=== PATIENT | male | born 1970 | race Caucasian/White ===

== ENCOUNTER 2019-08-03 12:39 | Outpatient (RCR) | payer BC, MEDICARE, SELFPAY | END 2019-11-01 23:59 | disposition home or self-care (01) | LOC: ANHDMC 12:39 | PROVIDERS: PCP Family Medicine; Visit Provider Family Medicine | DX: E10.10 Type 1 diabetes mellitus with ketoacidosis without coma (principal); Z71.89 Other specified counseling | CPT/HCPCS: G0108 ==

== ENCOUNTER 2020-04-18 21:24 | Inpatient (IN) | payer BC, MEDICARE, SELFPAY ==
--- NOTE | ~2020-04-18 | CT_ITS ---
EXAMINATION: CT abdomen pelvis w con EXAM DATE: 04/18/2020 23:14 INDICATION: Diabetic ketoacidosis. Elevated blood sugar. TECHNIQUE: Spiral CT of the abdomen and pelvis was performed following intravenous injection of 100 m L Omnipaque 350. Axial, coronal and sagittal images were reviewed. The dose-length product (DLP) fo r this examination was 187.08 mGy-cm. The exposure was tailored according to patient size (auto mA e xposure control), and iterative reconstruction (ASIR) was used as additional dose reduction technique . Comparison is made to prior examination from 07/11/2019. FINDINGS: Patient is cachectic. Paucity of intra-abdominal fat, along with edema within the fat decre ases sensitivity for acute intra-abdominal processes. There is large amount of gas and fluid in the stomach. There is moderate to large amount of colonic s tool. There are several loops of severely distended air-filled small bowel as well, up to 4 cm. Most of the small bowel is collapsed. Appendix is not identified. No free intraperitoneal gas. The liver, spleen, adrenal glands and pancreas are unremarkable. Gallbladder is unremarkable. No bi liary obstruction. Portal and splenic veins are patent. Kidneys enhance symmetrically. There is no hydronephrosis. The prostate is unremarkable. The bladder is severely distended but otherwise unr emarkable. There is no retroperitoneal or pelvic lymphadenopathy. There is mild scattered arterios clerotic disease. Narrow cardiac silhouette from hyperinflated lungs. No basilar airspace disease. The lung bases are unremarkable. L4-5 fusion hardware. IMPRESSION: 1. Significantly distended stomach and jejunum. Collapsed ileum but large amount of colonic stool. N o pneumatosis. Could be ileus given history provided. Can't exclude small bowel obstruction. Recommen d KUB as baseline for follow-up. 2. Cachexia. Generalized subcutaneous, intra-abdominal fat stranding. 3. Severely distended bladder. Reviewed, dictated and finalized at location [facility]. IMPRESSION: 1. Significantly distended stomach and jejunum. Collapsed ileum but large amou nt of colonic stool. No pneumatosis. Could be ileus given history provided. Can 't exclude small bowel obstruction. Recommend KUB as baseline for follow-up. 2. Cachexia. Generalized subcutaneous, intra-abdominal fat stranding. 3. Severely distended bladder.
--- NOTE | ~2020-04-18 | XR_ITS ---
XR abdomen obstructive series DATE: 04/19/2020 07:15 INDICATION: Partial small bowel obstruction TECHNIQUE: Portable supine and upright AP views of the abdomen COMPARISON: 04/18/2020 CT abdomen pelvis FINDINGS: The mid and lower lung zones are clear. Normal heart size. No pleural effusion or pneumoper itoneum is evident. The urinary bladder is distended with contrast material from 04/18/2020 CT abdomen pelvis examination. Some gas distended mildly dilated small bowel segments overlying the mid to lower abdomen; diffusion diagnosis includes partial small bowel obstruction versus adynamic ileus. Status post posterior spinal fusion at L5-S1. IMPRESSION: Mild small bowel dilatation; diffusion diagnosis includes partial small bowel obstruction versus adynamic ileus No evidence of intraperitoneal free air Reviewed, dictated and finalized at [facility]. Reviewed, dictated and finalized at location A. IMPRESSION: Mild small bowel dilatation; diffusion diagnosis includes partial s mall bowel obstruction versus adynamic ileus No evidence of intraperitoneal free air
[2020-04-18 21:36] VITALS: BP 154/55; PULSE 106; RESP 32; TEMP 36.5; O2SAT 99
[2020-04-18 21:40] VITALS: RESP 32
--- NOTE | 2020-04-18 21:40 | ED.RECABL ---
HPI - Recheck/Abnormal Lab/Rx General Chief Complaint: Recheck/Abnormal Lab/Rx Stated Complaint: high bs Time Seen by Provider: 04/18/20 21:30 History of Present Illness HPI narrative: Patient arrives via EMS after a well check at the hospital found him to be sick. He has a type I diabetic and has not been taking his insulin. His sugar read high. He has no complaint of pain. He is very thin and cachectic. He seems very uncomfortable, and is not answering all my questions. The nurse asked him if he wants to and he says no, she then says then why do not you take your insulin? MD complaint: abnormal lab Initial visit (ago): hour(s) Initial visit for: other (DKA in a type I diabetic) Associated symptoms: none Related Data Home Medications Medication Instructions Recorded Confirmed methadone 5 mg tablet 10 mg PO Q8H tablet 10/07/19 03/21/20 mecobalamin (vitamin B12) 1,000 1,000 mcg SUBLINGUAL DAILY 03/21/20 03/21/20 mcg disintegrating tablet,sublingual carbamazepine 200 mg tablet 200 mg PO Q12H 03/30/20 cranberry extract-vitamin C 250 cap PO 03/30/20 mg-60 mg capsule [id number] 800 mcg-alpha cap PO 03/30/20 alipoic acid 150 mg-co Q10 50 mg capsule multivitamin 1 tablet PO DAILY 03/30/20 sertraline 50 mg tablet 50 mg PO DAILY 03/30/20 insulin glargine 100 unit/mL (3 10 unit SUB-Q DAILY 04/04/20 mL) subcutaneous pen duloxetine [Cymbalta] 60 mg PO DAILY 04/18/20 Allergies Allergy/AdvReac Type Severity Reaction Status Date / Time No Known Allergies Allergy Unknown Uncoded 04/18/20 21:42 Review of Systems Review of Systems: Narrative: CONSTITUTIONAL: Denies fever, chills, or sweats. EYES: Denies visual changes, redness, or discharge. ENT: Denies rhinorrhea, congestion, sore throat, or otalgia. CARDIOVASCULAR: Denies chest pain, palpitations, or edema. RESPIRATORY: Denies cough or dyspnea. GASTROINTESTINAL: Denies abdominal pain, nausea, vomiting, or diarrhea. GENITOURINARY: Denies dysuria or hematuria. SKIN: Denies rash or itching. MUSCULOSKELETAL: Denies back pain, joint pain, or myalgia. NEUROLOGIC: Denies headache, numbness, or weakness. . All systems reviewed & are unremarkable except as noted in HPI and below PMFSH Past Medical History Medical History Bipolar disorder Gastro-esophageal reflux disease without esophagitis HTN (hypertension) Type 1 diabetes mellitus Umbilical hernia Surgical History Surgical History History of bilateral carpal tunnel release History of decompression of ulnar nerve History of lumbar spinal fusion History of rotator cuff surgery Hx of fusion of cervical spine Family History Family History Grandparent Diabetes mellitus, Onset Age: 80 Mother Patient's mother is in good health Family history of arthritis Family history of Alzheimer's disease Father Cerebrovascular accident, Onset Age: 72 Hypertension Sibling Hypertension Gallbladder cancer Social History Social History Smoking status: Light tobacco smoker Alcohol intake: never Substance use: never 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 HEAD: Normocephalic, atraumatic. EYES: PERRLA and EOMI. ENT: Nares clear, no rhinorrhea or epistaxis. Mucous membranes dry. NECK: Supple. CHEST: Clear to auscultation. No respiratory distress. HEART: Regular rate and rhythm. No murmur heard. Normal peripheral pulses. ABDOMEN: Soft, nontender, nondistended, normal active bowel sounds. EXTREMITIES: Normal range of motion. No edema. SKIN: Warm, dry, no rash. NEURO: No focal d
[2020-04-18] MEDS: SODIUM CHLORIDE 0.9% IV 1,000 ML 999 ML IV CONT ×2 (21:44→22:49)
[2020-04-18] MEDS: INSULIN HUMAN REGULAR (*BKC) 100 UNITS/ML 10 UNITS IV PUSH (21:51)
[2020-04-18 21:59] LABS: Basophils Absolute Auto 0.1 K/mm3 (0.0-0.1); Basophils Percent Auto 0.3 % (0.2-1.2); Hematocrit 36.6 % (42.0-52.0); Hemoglobin 11.9 g/dL (14.0-18.0); Immature Granulocyte Absolute 0.25 K/mm3 (0.00-0.031); Immature Granulocyte Percent A 1.2 % (0-0.5); Lymphocytes Absolute Auto 1.64 K/mm3 (0.9-3.2); Lymphocytes Percent Auto 8.2 % (18.3-44.2); Mean Corpuscular HGB Conc 32.5 g/dl (32-36); Mean Corpuscular Hemoglobin 33.2 pg (26-34); Mean Corpuscular Volume 102.2 fl (80-100); Monocytes Absolute Auto 0.9 K/mm3 (0.1-0.6); Monocytes Percent Auto 4.3 % (2.6-8.5); Neutrophils Absolute Auto 17.3 K/mm3 (1.3-6.7); Platelet Count Result 400 k/mm3 (150-375); Red Blood Count 3.58 M/mm3 (4.6-6.20); White Blood Count 20.1 K/mm3 (4.5-10.0)
[2020-04-18 22:05] LABS: Glucose Point of Care > 500 (65-105)
[2020-04-18 22:16] LABS: Alanine Aminotransferase 27 U/L (4-50); Albumin Level 3.9 g/dL (3.5-5.1); Alkaline Phosphatase 86 U/L (38-126); Aspartate Amino Transferase 26 U/L (17-59); Bilirubin,Total 0.5 mg/dL (0.2-1.3); Blood Urea Nitrogen 42 mg/dL (9-20); Calcium 8.6 mg/dL (8.4-10.2); Carbon Dioxide < 5 mmol/L (22-30); Chloride 88 mmol/L (98-107); Estimated CRCL calculation 41 ml/min; Estimated Glomerular Filt Rate 54; Magnesium 2.8 mg/dL (1.6-2.3); Phosphorus 7.1 mg/dL (2.5-4.5); Potassium 6.2 mmol/L (3.4-5.0); Sodium 130 mmol/L (137-145)
[2020-04-18 22:19] LABS: Glucose 803 mg/dL (75-110)
[2020-04-18] MEDS: INSULIN HUMAN REGULAR (*BKC) 100 UNITS/ML IV PUSH (22:46)
[2020-04-18 22:57] LABS: Basophils Absolute Auto 0.1 K/mm3 (0.0-0.1); Basophils Percent Auto 0.3 % (0.2-1.2); Hematocrit 38.2 % (42.0-52.0); Hemoglobin 12.4 g/dL (14.0-18.0); Immature Granulocyte Absolute 0.18 K/mm3 (0.00-0.031); Immature Granulocyte Percent A 0.9 % (0-0.5); Lymphocytes Absolute Auto 1.92 K/mm3 (0.9-3.2); Lymphocytes Percent Auto 9.6 % (18.3-44.2); Mean Corpuscular HGB Conc 32.5 g/dl (32-36); Mean Corpuscular Hemoglobin 33.2 pg (26-34); Mean Corpuscular Volume 102.1 fl (80-100); Mean Platelet Volume 8.7 fl (7.4-10.4); Monocytes Absolute Auto 0.2 K/mm3 (0.1-0.6); Monocytes Percent Auto 1.1 % (2.6-8.5); Neutrophils Absolute Auto 17.6 K/mm3 (1.3-6.7); Neutrophils Percent Auto 88.1 % (45.5-73.1); Nucleated Red Blood Cells Perc 0.1 % (0.0-0.2); Platelet Count Result 380 k/mm3 (150-375); Red Blood Count 3.74 M/mm3 (4.6-6.20); Red Cell Distribution Width 12.9 % (11.5-14.5)
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
[2020-04-18 23:18] VITALS: BP 155/85; PULSE 111; RESP 24; O2SAT 100
[2020-04-18 23:20] LABS: Alanine Aminotransferase 27 U/L (4-50); Albumin Level 3.6 g/dL (3.5-5.1); Alkaline Phosphatase 75 U/L (38-126); Anion Gap 35.6 mmol/L (7-16); Aspartate Amino Transferase 26 U/L (17-59); Bilirubin,Total 0.4 mg/dL (0.2-1.3); Blood Urea Nitrogen 40 mg/dL (9-20); Carbon Dioxide 6 mmol/L (22-30); Chloride 96 mmol/L (98-107); Estimated CRCL calculation 47 ml/min; Estimated Glomerular Filt Rate > 60; Glucose 657 mg/dL (75-110); Potassium 4.6 mmol/L (3.4-5.0); Sodium 133 mmol/L (137-145)
[2020-04-18 23:36] LABS: Lactic Acid Reflex 5.3 mmol/L (0.7-2.1)
[2020-04-18 23:38] LABS: Alveolar/Arterial O2 Gradient 15.3 mmHg; Base Excess ABG -14.4 mEq/l (+/-2.0); Fractional Inspired Oxygen 21 %; HCO3 ABG 8.9 mEq/l (22.0-26.0); Oxygen Content ABG 16.3 %vol (16.0-22.0); Oxygen Saturation ABG 98.1 % (95.0-100.0); Oxyhemoglobin 96.6 % THb (90.0-100.0); PO2 ABG 114.3 mmHg (80.0-100.0); PO2 FiO2 Ratio Arterial Blood 5.44 %; Total Hemoglobin 11.9 g/dL (12.0-18.0); pH ABG 7.343 (7.350-7.450)
[2020-04-18 23:39] LABS: Device ROOM AIR; Modified Allen's Test Pass; PCO2 ABG 16.8 mmHg (35.0-45.0); Site Drawn RIGHT RADIAL
[2020-04-19] VITALS (16 sets, daily range): BP systolic 138–186; BP diastolic 56–82; PULSE 69–109; RESP 18–29; TEMP 37.7; O2SAT 97–100; BMI 17.2; BMI 17.1
[2020-04-19] MEDS: INSULIN HUMAN REGULAR (*BKC) 100 UNITS in SODIUM CHLORIDE 0.9% IV 99 ML 9.2 UNITS IV CONT (00:03)
[2020-04-19 00:17] LABS: Glucose Point of Care > 500 (65-105)
[2020-04-19 00:28] LABS: Add Urine Microscopic? YES; Appearance Urine Clear (Clear); Bilirubin Urine Negative (Negative); Blood Urine Negative (Negative); Color Urine Straw (Yellow); Glucose Urine UA 3+ mg/dL (Negative); Ketones Urine 2+ mg/dL (Negative); Leukocyte Esterase Ur Negative LEU/UL (Negative); Mucus Urine Rare /lpf; Nitrate Urine Negative (Negative); Protein Urine Negative (Negative); RBC Urine 0-2 /hpf (0-2); Specific Grav Ur 1.025 (1.001-1.035); Urobilinogen Urine Negative mg/dL (<2.0); WBC Urine 0-3 /hpf
[2020-04-19 00:43] LABS: Amphetamine Screen Urine Negative (Negative); Barbiturate Screen Urine Negative (Negative); Benzodiazepines Screen Urine Negative (Negative); Cannabinoid Screen Urine Negative (Negative); Cocaine Screen Urine Negative (Negative); Methadone Screen Urine Negative (Negative); Opiate Screen Urine Negative (Negative); Phencyclidine Screen Urine Negative (Negative)
[2020-04-19 01:39] LABS: Glucose Point of Care 464 (65-105)
[2020-04-19 02:21] LABS: Reflex Lactic Acid Yes or No Add Lactic
[2020-04-19] MEDS: SODIUM CHLORIDE 0.9% IV 1,000 ML 150 ML IV CONT (02:22)
[2020-04-19 02:44] LABS: Glucose Point of Care 352 (65-105)
[2020-04-19 03:14] LABS: Alveolar/Arterial O2 Gradient 46.1 mmHg; Base Excess ABG -5.5 mEq/l (+/-2.0); Fractional Inspired Oxygen 21 %; HCO3 ABG 17.9 mEq/l (22.0-26.0); Oxygen Content ABG 15.7 %vol (16.0-22.0); Oxygen Saturation ABG 94.4 % (95.0-100.0); Oxyhemoglobin 92.2 % THb (90.0-100.0); PCO2 ABG 28.7 mmHg (35.0-45.0); PO2 ABG 69.3 mmHg (80.0-100.0); Total Hemoglobin 12.1 g/dL (12.0-18.0); pH ABG 7.412 (7.350-7.450)
[2020-04-19 03:15] LABS: Device ROOM AIR; Modified Allen's Test Pass; Site Drawn RIGHT RADIAL
[2020-04-19 03:25] LABS: Glucose Point of Care 388 (65-105)
[2020-04-19 04:31] LABS: Glucose Point of Care 273 (65-105)
[2020-04-19 05:37] LABS: Glucose Point of Care 207 (65-105)
[2020-04-19] MEDS: KCL 20 MEQ/D5/0.45% SOD CHL 1,000 ML 150 ML IV CONT (05:52)
[2020-04-19 06:36] LABS: Glucose Point of Care 145 (65-105)
[2020-04-19 07:42] LABS: Glucose Point of Care 119 (65-105)
[2020-04-19 07:51] LABS: Anion Gap 7.8 mmol/L (7-16); Blood Urea Nitrogen 30 mg/dL (9-20); Calcium 8.3 mg/dL (8.4-10.2); Carbon Dioxide 27 mmol/L (22-30); Chloride 107 mmol/L (98-107); Estimated CRCL calculation 78 ml/min; Estimated Glomerular Filt Rate > 60; Glucose 119 mg/dL (75-110); Potassium 3.8 mmol/L (3.4-5.0); Sodium 138 mmol/L (137-145)
[2020-04-19 07:52] LABS: Lactic Acid Reflex 0.8 mmol/L (0.7-2.1)
[2020-04-19 08:38] LABS: Glucose Point of Care 110 (65-105)
[2020-04-19 09:28] LABS: Basophils Percent Auto 0.2 % (0.2-1.2); Hematocrit 33.6 % (42.0-52.0); Hemoglobin 11.7 g/dL (14.0-18.0); Immature Granulocyte Absolute 0.11 K/mm3 (0.00-0.031); Immature Granulocyte Percent A 0.5 % (0-0.5); Lymphocytes Absolute Auto 2.47 K/mm3 (0.9-3.2); Lymphocytes Percent Auto 10.5 % (18.3-44.2); Mean Corpuscular HGB Conc 34.8 g/dl (32-36); Mean Corpuscular Volume 94.6 fl (80-100); Mean Platelet Volume 8.9 fl (7.4-10.4); Monocytes Absolute Auto 1.7 K/mm3 (0.1-0.6); Monocytes Percent Auto 7.2 % (2.6-8.5); Neutrophils Absolute Auto 19.3 K/mm3 (1.3-6.7); Neutrophils Percent Auto 81.6 % (45.5-73.1); Platelet Count Result 406 k/mm3 (150-375); Red Blood Count 3.55 M/mm3 (4.6-6.20); Red Cell Distribution Width 12.6 % (11.5-14.5); White Blood Count 23.6 K/mm3 (4.5-10.0)
[2020-04-19 09:39] LABS: Glucose Point of Care 121 (65-105)
[2020-04-19 10:38] LABS: Glucose Point of Care 75 (65-105)
--- NOTE | 2020-04-19 10:44 | PC.NURSE ---
Insulin drip paused at this time.
[2020-04-19 11:58] LABS: Glucose Point of Care 98 (65-105)
--- NOTE | 2020-04-19 12:52 | PC.NURSE ---
Spoke with Nichelle, Saw Straightener and Dr Jerez. Instructed to give 10 units Lantus and continue the insulin drip for 1 hr after 10 unit dose given.
[2020-04-19] MEDS: INSULIN GLARGINE (*BKC) 100 UNITS/ML 10 UNITS SUB-Q (12:55)
[2020-04-19 12:59] LABS: Glucose Point of Care 118 (65-105)
[2020-04-19 13:16] LABS: Anion Gap 12.2 mmol/L (7-16); Blood Urea Nitrogen 30 mg/dL (9-20); Calcium 7.7 mg/dL (8.4-10.2); Carbon Dioxide 24 mmol/L (22-30); Chloride 104 mmol/L (98-107); Estimated CRCL calculation 90 ml/min; Estimated Glomerular Filt Rate > 60; Glucose 131 mg/dL (75-110); Potassium 4.2 mmol/L (3.4-5.0); Sodium 136 mmol/L (137-145)
[2020-04-19 13:54] LABS: Glucose Point of Care 113 (65-105)
--- NOTE | 2020-04-19 13:58 | PC.NURSE ---
Spoke with Kamlesh and instructed to stop IV insulin. Informed that pt will be downgraded from ICU.
--- NOTE | 2020-04-19 16:03 | PM.CNGS ---
Assessment and Plan Assessment and plan (1) Ileus: Code(s): K56.7 - Ileus, unspecified Status: Acute Assessment and Plan: Imaging suggests ileus versus partial small bowel obstruction. Patient with no history of abdominal surgeries. Bowels have been moving normally. Clinically his symptoms have resolved with treatment of his DKA. Abdominal exam benign. No indication for surgical intervention at this time. Okay to advance his diet as tolerated from a surgical standpoint. We will continue to monitor him with serial abdominal exams and imaging if needed. Thank you for allowing us to see the patient in consultation and we will continue to follow along with you. (2) Leukocytosis: Qualifiers: Leukocytosis type: unspecified Qualified Code(s): D72.829 - Elevated white blood cell count, unspecified Code(s): D72.829 - Elevated white blood cell count, unspecified Status: Acute Assessment and Plan: Currently on broad-spectrum IV antibiotics. No obvious source of infection. Management per primary service. (3) Elevated lactic acid level: Code(s): R79.89 - Other specified abnormal findings of blood chemistry Status: Acute Assessment and Plan: Repeat lactic acid normal. Likely related to his DKA. (4) DKA (diabetic ketoacidoses): Qualifiers: Diabetes mellitus complication detail: without coma Diabetes mellitus type: type 1 Qualified Code(s): E10.10 - Type 1 diabetes mellitus with ketoacidosis without coma Code(s): E11.10 - Type 2 diabetes mellitus with ketoacidosis without coma Status: Acute Assessment and Plan: Currently off Insulin drip and anion gap closed. Management per primary service and Retail Pos Specialist. When it is okay to start feeding the patient with other services, it is okay from a surgical standpoint to advance his diet as tolerated. (5) Type 1 diabetes mellitus: Qualifiers: Diabetes mellitus complication status: with hyperglycemia Qualified Code(s): E10.65 - Type 1 diabetes mellitus with hyperglycemia Code(s): E10.9 - Type 1 diabetes mellitus without complications Status: Acute (6) Chronic constipation: Code(s): K59.09 - Other constipation Status: Acute (7) Other chronic pain: Code(s): G89.29 - Other chronic pain Status: Acute Assessment and Plan: Takes methadone for chronic pain. Could be contributing to current issue. Would likely benefit from laxatives. (8) Substance abuse: Code(s): F19.10 - Other psychoactive substance abuse, uncomplicated Status: Acute Assessment and Plan: Could contribute to constipation and other issues. Encouraged patient to stop using. Has recently looked at a treatment facility for substance abuse. (9) Essential (primary) hypertension: Code(s): I10 - Essential (primary) hypertension Status: Acute (10) Bipolar disorder: Qualifiers: Active/Remission status: remission status unspecified Qualified Code(s): F31.9 - Bipolar disorder, unspecified Code(s): F31.9 - Bipolar disorder, unspecified Status: Chronic (11) Ventral hernia without obstruction or gangrene: Code(s): K43.9 - Ventral hernia without obstruction or gangrene Status: Acute Assessment and Plan: Not the cause for admission or causing any current issues. Was seen by Dr. Nichols as an outpatient for this increasingly symptomatic ventral hernia. No obstruction, soft and reducible. Continue plan to schedule electively as an outpatient. Additional Plan Discussed the patient's case and plan of care with Dr. Nichols. History of Present Illness Consult details Consult date: 04/19/20 Reason for consult: other (Possible small bowel obstruction versus ileus) Requesting physician: Jim Moncada MD Narrative: This is a 49-year-old male with type 1 diabetes mellitus, bipolar disorder, hypertension, and GERD who presented to
[2020-04-19 17:09] LABS: Glucose Point of Care 101 (65-105)
[2020-04-19 17:09] LABS: Glucose Point of Care 78 (65-105)
--- NOTE | 2020-04-19 17:23 | PC.NURSE ---
meal tray ordered
--- NOTE | 2020-04-19 18:33 | PM.IMPN ---
Progress Note: A&P Assessment and Plan (1) DKA (diabetic ketoacidoses): Qualifiers: Diabetes mellitus complication detail: without coma Diabetes mellitus type: type 1 Qualified Code(s): E10.10 - Type 1 diabetes mellitus with ketoacidosis without coma Code(s): E11.10 - Type 2 diabetes mellitus with ketoacidosis without coma Status: Acute Assessment and Plan: Secondary to medication nonadherence. pH 7.34 with pCO2 17. AG on 36 with glucose 657. Pateitn started on IVF and insulin per DKA protocol. Glucose became better controlled and gap closed. He was transitioned to subcu insulin. IV fluids stopped. Diet started once it was okay with GenSurg and advanced. Diabetes education. Continue AccuCheks with sliding scale protocol. Hypoglycemic protocol. (2) Severe sepsis: Code(s): A41.9 - Sepsis, unspecified organism; R65.20 - Severe sepsis without septic shock Status: Acute Assessment and Plan: Present on admission w/ tachcyardia, leukocytosis, and elevated lactic acid. No clear source of sepsis but may be GI as the patient appears to have an ileus vs. bowel obstruction. BCx and UCx pending. WBC still elevated at 23K. Continue empiric antibiotics w/ vancomycin and ceftriaxone. (3) Ileus: Code(s): K56.7 - Ileus, unspecified Status: Acute Assessment and Plan: CT abd/pelvis demonstrated ileus vs. bowel obstruction. He was NPO overnight. KUB today showing mild SB dilation. GenSurg following and patient with improved bowel function. Diet started and advanced. Appreceiate GenSurg input. Suspect ileus from the DKA. (4) Substance abuse: Code(s): F19.10 - Other psychoactive substance abuse, uncomplicated Status: Acute Assessment and Plan: Patient with chronic opioid addiction. Methadone was listed as home med but unclear if still taking. Will have narcotic available pain. Resume methadone he still takes this. Monitor closely for evidence of withdrawal. Ativan available as needed (5) Acute renal insufficiency: Code(s): N28.9 - Disorder of kidney and ureter, unspecified Status: Acute Assessment and Plan: Cr 1.4 on admssion. Likely prerenal from hypoperfusion. Cr back to normal. [place] to stop IV fluids. (6) Hyperkalemia: Code(s): E87.5 - Hyperkalemia Status: Acute Assessment and Plan: Potassium 6.2 on admission. Secondary to acute renal failure and metabolic acidosis. Resolved with correction of acidosis and renal failure (7) Type 1 diabetes mellitus: Qualifiers: Diabetes mellitus complication status: with hyperglycemia Qualified Code(s): E10.65 - Type 1 diabetes mellitus with hyperglycemia Code(s): E10.9 - Type 1 diabetes mellitus without complications Status: Acute Assessment and Plan: As above. Check A1c. Monitor glucose closely. Continue AccuCheks covering with sliding scale. Hypoglycemia protocol available as needed. Continue current medications. (8) Elevated lactic acid level: Code(s): R79.89 - Other specified abnormal findings of blood chemistry Status: Acute Assessment and Plan: Lactic 5.3. Secondary to DKA vs. severe sepsis. Repeat lactic acid level normal so suspect related to DKA. (9) Leukocytosis: Qualifiers: Leukocytosis type: unspecified Qualified Code(s): D72.829 - Elevated white blood cell count, unspecified Code(s): D72.829 - Elevated white blood cell count, unspecified Status: Acute Assessment and Plan: May be seconadry to DKA vs. severe sepsis. Monitor CBCd. As above. (10) Bipolar disorder: Qualifiers: Active/Remission status: remission status unspecified Qualified Code(s): F31.9 - Bipolar disorder, unspecified Code(s): F31.9 - Bipolar disorder, unspecified Status: Chronic Assessment and Plan: Stable. Resume Cymbalta and Tegreto
[2020-04-19 19:42] LABS: Glucose Point of Care 173 (65-105)
[2020-04-19 23:11] LABS: Glucose Point of Care 190 (65-105)
[2020-04-19] MEDS: carBAMazepine 200 MG TABLET PO (23:29)
[2020-04-20] VITALS: BP 139/73; PULSE 73; RESP 20; TEMP 37.3; O2SAT 100
--- NOTE | 2020-04-20 00:01 | ADMGEN ---
This patient, Idris Del Angel, was admitted to [facility] Surg Room 310-01. Patient/family oriented to hospital policies and general routines including ID bracelet, bed and alarms, visiting hours, pain management, procedures, bathroom and other care routines, personal items, smoking policy, room service/diet, and visiting hours. Valuables list has been completed. Information on how to activate the Rapid Response Team has been discussed. Patient/Family are encouraged to report perceived risks to care and to ask questions if they do not understand what they are told or what they should do.
[2020-04-20 05:49] LABS: Glucose Point of Care 336 (65-105)
[2020-04-20 06:00] VITALS: BP 122/67; PULSE 65; RESP 20; TEMP 37.3; O2SAT 98
[2020-04-20 06:27] LABS: Basophils Percent Auto 0.1 % (0.2-1.2); Eosinophils Percent Auto 0.1 % (0-4.4); Hemoglobin 11.3 g/dL (14.0-18.0); Immature Granulocyte Absolute 0.09 K/mm3 (0.00-0.031); Immature Granulocyte Percent A 0.5 % (0-0.5); Lymphocytes Absolute Auto 1.05 K/mm3 (0.9-3.2); Lymphocytes Percent Auto 6.3 % (18.3-44.2); Mean Corpuscular HGB Conc 34.2 g/dl (32-36); Mean Corpuscular Hemoglobin 32.5 pg (26-34); Mean Corpuscular Volume 94.8 fl (80-100); Mean Platelet Volume 8.5 fl (7.4-10.4); Monocytes Absolute Auto 0.5 K/mm3 (0.1-0.6); Monocytes Percent Auto 3.2 % (2.6-8.5); Neutrophils Percent Auto 89.8 % (45.5-73.1); Platelet Count Result 341 k/mm3 (150-375); Red Blood Count 3.48 M/mm3 (4.6-6.20); Red Cell Distribution Width 12.8 % (11.5-14.5); White Blood Count 16.7 K/mm3 (4.5-10.0)
[2020-04-20 06:42] LABS: Hemoglobin A1C 10.5 % (<5.7)
[2020-04-20 06:44] LABS: Albumin Level 2.8 g/dL (3.5-5.1); Anion Gap 13.2 mmol/L (7-16); Blood Urea Nitrogen 25 mg/dL (9-20); Calcium 7.3 mg/dL (8.4-10.2); Carbon Dioxide 22 mmol/L (22-30); Chloride 98 mmol/L (98-107); Estimated CRCL calculation 85 ml/min; Estimated Glomerular Filt Rate > 60; Glucose 337 mg/dL (75-110); Magnesium 2.1 mg/dL (1.6-2.3); Phosphorus 2.3 mg/dL (2.5-4.5); Potassium 4.2 mmol/L (3.4-5.0); Sodium 129 mmol/L (137-145)
[2020-04-20 08:00] VITALS: PULSE 65; RESP 20; O2SAT 98
[2020-04-20 09:08] LABS: Glucose Point of Care 412 (65-105)
[2020-04-20] MEDS: carBAMazepine 200 MG TABLET PO (10:00)
[2020-04-20] MEDS: INSULIN GLARGINE (*BKC) 100 UNITS/ML 20 UNITS SUB-Q (10:10)
[2020-04-20] MEDS: INSULIN ASPART (*BKC) 100 UNITS/ML SUB-Q ×2 (10:10→12:47)
[2020-04-20] MEDS: DULoxetine HCL 60 MG CAPSULE.DR PO (10:10)
[2020-04-20] MEDS: MULTIVITAMINS THERAPEUTIC TAB (*BKC) 1 TABLET PO (10:49)
[2020-04-20] MEDS: PANTOPRAZOLE 40 MG TABLET PO (10:49)
[2020-04-20] MEDS: CYANOCOBALAMIN 1,000 MCG TABLET 1000 MCG PO (10:50)
[2020-04-20] MEDS: POTASSIUM/PHOSPHORUS/SODIUM 1.5 GM PACKET 1 PACKET PO (11:01)
[2020-04-20 11:24] VITALS: BMI 17.1
--- NOTE | 2020-04-20 11:38 | PM.PNGS ---
Progress Note: A&P Assessment and Plan (1) Ileus: Code(s): K56.7 - Ileus, unspecified Status: Acute Assessment and Plan: resolved c correction of DKA, electrolytes, no acute surgical issues, will sign off, call c ?s, issues (2) DKA (diabetic ketoacidoses): Qualifiers: Diabetes mellitus complication detail: without coma Diabetes mellitus type: type 1 Qualified Code(s): E10.10 - Type 1 diabetes mellitus with ketoacidosis without coma Code(s): E11.10 - Type 2 diabetes mellitus with ketoacidosis without coma Status: Acute Assessment and Plan: resolving, cont current mgmt (3) HTN (hypertension): Code(s): I10 - Essential (primary) hypertension Status: Acute Assessment and Plan: stable, cont mgmt per primary (4) Umbilical hernia: Qualifiers: Obstruction and gangrene presence: without obstruction or gangrene Qualified Code(s): K42.9 - Umbilical hernia without obstruction or gangrene Code(s): K42.9 - Umbilical hernia without obstruction or gangrene Status: Acute Assessment and Plan: may need repair in future as outpt, d/w pt (5) Substance abuse: Code(s): F19.10 - Other psychoactive substance abuse, uncomplicated Status: Acute Assessment and Plan: cont to encourage cessation Subjective Subjective Date/Time Seen: 04/20/20 11:38 Pt reports feeling better, still some mild abd soreness. Pt sanam diet and having normal bowel fxn. Review of Systems Constitutional: Constitutional: Reports body ache(s), Denies chills, Reports fatigue, Reports lethargy and Reports weakness Cardiovascular: Cardiovascular: Denies chest pain and Denies palpitations Respiratory: Respiratory: Denies dyspnea Gastrointestinal: Gastrointestinal: Reports abdominal pain, Reports bloating, Reports constipation, Denies diarrhea, Denies nausea and Denies vomiting Exam Const: General: no acute distress Resp: Auscultation: clear to auscultation bilaterally Cardio: Rate: regular rate Rhythm: regular rhythm GI: Other: S, sl dist, NT Objective Data Vital Signs Vital Signs: Vital Signs - 24 hr 04/19/20 12:00 04/19/20 13:41 04/19/20 15:01 Temperature Pulse Rate 88 69 102 H Respiratory Rate 18 18 18 Blood Pressure 145/68 H 151/79 H 138/62 Pulse Oximetry 99 100 100 04/19/20 16:02 04/19/20 19:01 04/19/20 20:20 Temperature 37.7 C H Pulse Rate 79 79 93 Respiratory Rate 18 18 20 Blood Pressure 146/71 H 155/75 H 152/72 H Pulse Oximetry 98 99 100 04/20/20 00:00 04/20/20 06:00 Temperature 37.3 C 37.3 C Pulse Rate 73 65 Respiratory Rate 20 20 Blood Pressure 139/73 122/67 Pulse Oximetry 100 98 Intake/Output Intake/Output: Intake & Output 04/17/20 04/18/20 04/19/20 04/20/20 23:59 23:59 23:59 23:59 Intake Total 1000 2300 1340 Output Total 900 1200 Balance 1000 1400 140 Meds/Results Medications: Active Medications Generic Name Dose Route Start Last Admin Trade Name Freq PRN Reason Stop Dose Admin Acetaminophen 650 mg 04/18/20 22:48 Tylenol Tablet PO Q4H PRN Mild Pain (1-3) or Fever Hydrocodone Bitart/Acetaminophen 1 tab 04/19/20 19:08 04/20/20 10:38 [place] 5-325 Mg PO 1 tab Q6H PRN Administration Pain Rated 4-6 Carbamazepine 200 mg 04/19/20 21:00 04/20/20 10:00 Tegretol PO 200 mg Q12HR RENO Administration Cyanocobalamin 1,000 mcg 04/20/20 09:00 04/20/20 10:50 Vitamin B-12 Tab PO 1,000 mcg QAM RENO Administration Dextrose 12.5 gm 04/18/20 23:11 Dextrose 50% Syringe IV PUSH PRN PRN Hypoglycemia Protocol Duloxetine HCl 60 mg 04/20/20 09:00 04/20/20 10:10 Cymbalta PO 60 mg DAILY RENO Administration Glucagon 1 mg 04/18/20 23:11 Glucagon For Inj IM PRN PRN Hypoglycemia Protocol Glucose 15 gm 04/18/20 23:11 Glutose 15 PO PRN PRN Hypoglycemia Protocol Dextrose 1,000 mls
[2020-04-20 12:20] LABS: Glucose Point of Care 475 (65-105)
[2020-04-20] MEDS: POTASSIUM CHLORIDE 20 MEQ PACKET (FOR LIQUID) (12:47)
[2020-04-20] MEDS: INSULIN ASPART (*BKC) 100 UNITS/ML 8 UNITS SUB-Q (12:49)
--- NOTE | 2020-04-20 13:44 | P.PNIM_ITS ---
Progress Note: A&P Assessment and Plan (1) DKA (diabetic ketoacidoses): Qualifiers: Diabetes mellitus complication detail: without coma Diabetes mellitus type: type 1 Qualified Code(s): E10.10 - Type 1 diabetes mellitus with ketoacidosis without coma Code(s): E11.10 - Type 2 diabetes mellitus with ketoacidosis without coma Status: Acute Assessment and Plan: Secondary to medication nonadherence. pH 7.34 with pCO2 17. AG on 36 with glucose 657. Pateitn started on IVF and insulin per DKA protocol. Glucose became better controlled and gap closed. He was transitioned to subcu insulin. IV fluids stopped. Diet started once it was okay with GenSurg and advanced. Diabetes education. Continue AccuCheks with sliding scale protocol. Hypoglycemic protocol. (2) Severe sepsis: Code(s): A41.9 - Sepsis, unspecified organism; R65.20 - Severe sepsis without septic shock Status: Acute Assessment and Plan: Present on admission w/ tachcyardia, leukocytosis, and elevated lactic acid. No clear source of sepsis but may be GI as the patient appears to have an ileus vs. bowel obstruction. BCx and UCx pending. WBC still elevated at 23K. Continue empiric antibiotics w/ vancomycin and ceftriaxone. (3) Ileus: Code(s): K56.7 - Ileus, unspecified Status: Acute Assessment and Plan: CT abd/pelvis demonstrated ileus vs. bowel obstruction. He was NPO overnight. KUB today showing mild SB dilation. GenSurg following and patient with improved bowel function. Diet started and advanced. Appreceiate GenSurg input. Suspect ileus from the DKA. (4) Substance abuse: Code(s): F19.10 - Other psychoactive substance abuse, uncomplicated Status: Acute Assessment and Plan: Patient with chronic opioid addiction. Methadone was listed as home med but unclear if still taking. Will have narcotic available pain. Resume methadone he still takes this. Monitor closely for evidence of withdrawal. Ativan available as needed (5) Acute renal insufficiency: Code(s): N28.9 - Disorder of kidney and ureter, unspecified Status: Acute Assessment and Plan: Cr 1.4 on admssion. Likely prerenal from hypoperfusion. Cr back to normal. [place] to stop IV fluids. (6) Hyperkalemia: Code(s): E87.5 - Hyperkalemia Status: Acute Assessment and Plan: Potassium 6.2 on admission. Secondary to acute renal failure and metabolic acidosis. Resolved with correction of acidosis and renal failure (7) Type 1 diabetes mellitus: Qualifiers: Diabetes mellitus complication status: with hyperglycemia Qualified Code(s): E10.65 - Type 1 diabetes mellitus with hyperglycemia Code(s): E10.9 - Type 1 diabetes mellitus without complications Status: Acute Assessment and Plan: As above. Check A1c. Monitor glucose closely. Continue AccuCheks covering with sliding scale. Hypoglycemia protocol available as needed. Continue current medications. (8) Elevated lactic acid level: Code(s): R79.89 - Other specified abnormal findings of blood chemistry Status: Acute Assessment and Plan: Lactic 5.3. Secondary to DKA vs. severe sepsis. Repeat lactic acid level normal so suspect related to DKA. (9) Leukocytosis: Qualifiers: Leukocytosis type: unspecified Qualified Code(s): D72.829 - Elevated white blood cell count, unspecified Code(s): D72.829 - Elevated white blood cell count, unspecified Status: Acute Assessment and Plan:
[2020-04-20 14:00] VITALS: BP 115/70; PULSE 117; RESP 18; TEMP 36.7; O2SAT 99
--- NOTE | 2020-04-20 14:09 | PCNSR ---
On 04/20/20, the student,Delgado Trinidad, provided care and completed [facility] documentation on this patient. I have reviewed the student's documentation and agree with the findings.
[2020-04-20 14:48] LABS: Glucose Point of Care > 500 (65-105)
--- NOTE | 2020-04-20 15:12 | PM.DS ---
DS: Admitting Diagnosis Admitting Diagnosis Admitting Diagnosis: Type 1 diabetes mellitus with ketoacidosis without coma DS: Discharge Diagnosis Discharge Diagnosis (1) Severe sepsis: Code(s): A41.9 - Sepsis, unspecified organism; R65.20 - Severe sepsis without septic shock Status: Acute Assessment and Plan: Present on admission w/ tachcyardia, leukocytosis, and elevated lactic acid. Started on abx on admission with Vanco and Rocephin. BCx returned positive for gram positive cocci in clusters (1of2 bottles). UCx negative. WBC elevated to 23K that improved to 16K today. Patient decided to sign out against medical advice. Long discussion with him and family in the room (with his permission). He voices understanding that he could worsen to the point of dying. Abx given at discharge and it was made clear that this is NOT appropriate treatment but may be of benefit. He voices that he understands the risks of signing out against medical advice. (2) DKA (diabetic ketoacidoses): Qualifiers: Diabetes mellitus complication detail: without coma Diabetes mellitus type: type 1 Qualified Code(s): E10.10 - Type 1 diabetes mellitus with ketoacidosis without coma Code(s): E11.10 - Type 2 diabetes mellitus with ketoacidosis without coma Status: Acute Assessment and Plan: Secondary to medication nonadherence. pH 7.34 with pCO2 17. AG on 36 with glucose 657. Pateitn started on IVF and insulin per DKA protocol. Glucose became better controlled and gap closed. He was transitioned to subcu insulin. IV fluids stopped. Diet started once it was okay with GenSurg and advanced. Diabetes education. AccuCheks with sliding scale protocol. Hypoglycemic protocol. (3) Ileus: Code(s): K56.7 - Ileus, unspecified Status: Acute Assessment and Plan: CT abd/pelvis demonstrated ileus vs. bowel obstruction. He was NPO. KUB the next day showing mild SB dilation. GenSurg following and patient with improved bowel function. Diet started and advanced. Appreciate GenSurg input. Suspect ileus from the DKA. (4) Substance abuse: Code(s): F19.10 - Other psychoactive substance abuse, uncomplicated Status: Acute Assessment and Plan: Patient with chronic opioid addiction. Methadone was listed as home med but he does not take this. Will have narcotic available pain. He was monitored closely for evidence of withdrawal. Ativan available as needed (5) Acute renal insufficiency: Code(s): N28.9 - Disorder of kidney and ureter, unspecified Status: Acute Assessment and Plan: Cr 1.4 on admssion. Likely prerenal from hypoperfusion. Cr back to normal. (6) Hyperkalemia: Code(s): E87.5 - Hyperkalemia Status: Acute Assessment and Plan: Potassium 6.2 on admission. Secondary to acute renal failure and metabolic acidosis. Resolved with correction of acidosis and renal failure (7) Type 1 diabetes mellitus: Qualifiers: Diabetes mellitus complication status: with hyperglycemia Qualified Code(s): E10.65 - Type 1 diabetes mellitus with hyperglycemia Code(s): E10.9 - Type 1 diabetes mellitus without complications Status: Acute Assessment and Plan: A1c 10.5. We monitored glucose closely as above. Continue AccuCheks covering with sliding scale. Hypoglycemia protocol available as needed. (8) Elevated lactic acid level: Code(s): R79.89 - Other specified abnormal findings of blood chemistry Status: Acute Assessment and Plan: Lactic 5.3. Secondary to DKA and/or severe sepsis. Repeat lactic acid level normal so suspect more liekly related to DKA. (9) Leukocytosis: Qualifiers: Leukocytosis type: unspecified Qualified Code(s): D72.829 - Elevated white blood cell count, unspecified Code(s): D72.829 - Elevated white blood cell count, unspecified S
[2020-04-20] MEDS: INSULIN ASPART (*BKC) 100 UNITS/ML 15 UNITS SUB-Q (15:15)
--- NOTE | 2020-04-25 13:22 | PC.NURSE ---
Blood cx growing Coag negative staph; micrococcus species. Patient sent home on Doxicycline, which is susceptible. Dr. Nora boyle.
--- NOTE | 2020-05-02 14:33 | PC.NURSE ---
Attempted to call patient. No answer.
--- NOTE | 2020-05-03 13:52 | PC.NURSE ---
Attempted to call patient. No answer.
== END 2020-04-20 15:20 | disposition left against medical advice (07) | DRG 871 ==
LOC: ANHED 22:51 → ANHICU 04-19 15:44 → ANH3MEDSUR 04-20 06:04 → ANHICU 04-24 09:13
PROVIDERS: Admitting Provider Family Medicine; Emergency Provider Emergency Medicine; PCP Family Medicine; Visit Provider Internal Medicine
DX: A41.1 Sepsis due to other specified staphylococcus (principal); E10.10 Type 1 diabetes mellitus with ketoacidosis without coma; K56.7 Ileus, unspecified; F11.20 Opioid dependence, uncomplicated; R65.20 Severe sepsis without septic shock; Z79.4 Long term (current) use of insulin; Z91.14 Patient's other noncompliance with medication regimen; N28.9 Disorder of kidney and ureter, unspecified; F31.9 Bipolar disorder, unspecified; F17.200 Nicotine dependence, unspecified, uncomplicated; I10 Essential (primary) hypertension; K42.9 Umbilical hernia without obstruction or gangrene; G89.29 Other chronic pain; E86.0 Dehydration; E87.5 Hyperkalemia; E83.41 Hypermagnesemia; F41.9 Anxiety disorder, unspecified; K21.9 Gastro-esophageal reflux disease without esophagitis; K59.09 Other constipation; Z79.899 Other long term (current) drug therapy
CPT/HCPCS: 36415; 36600; 74019; 74177; 80048; 80053; 80069; 80307; 81001; 82010; 82805; 82948; 83036; 83605; 83735; 84100; 85025; 87040; 87077; 87086; 87186; 96361; 96374; 96376; 99285; A9270; J0696; J1815; J2060; J3370; J3480; J7030; Q9967

== ENCOUNTER 2021-01-23 09:46 | Emergency (ER) | payer OTHER, BC, MEDICARE, SELFPAY ==
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
[2021-01-23 09:50] VITALS: BP 136/60; PULSE 102; RESP 23; TEMP 37.1; O2SAT 100
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
--- NOTE | 2021-01-23 10:00 | PC.NURSE ---
C collar applied per ED MD order
[2021-01-23] MEDS: MORPHINE SULFATE (*CRX) 4 MG/ML INJ IV PUSH (10:01)
[2021-01-23] MEDS: SODIUM CHLORIDE 0.9% IV 1,000 ML 999 ML IV CONT (10:01)
[2021-01-23] MEDS: TETANUS,DIPHTHERIA,AC PERTUSSIS ADULT (0.5 ML) BOOSTRIX IM (10:06)
--- NOTE | 2021-01-23 10:11 | PC.NURSE ---
gave tetnus - left deltoid
[2021-01-23] MEDS: AMPICILLIN SULB 3 GM/NS 100 ML 3 GM/100 ML VIAL IVPB (10:23)
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
[2021-01-23 10:40] VITALS: BP 155/77; PULSE 83; RESP 24; O2SAT 97
--- NOTE | 2021-01-23 11:04 | PC.NURSE ---
[facility] here to transport pt to [facility]
--- NOTE | 2021-01-23 11:17 | PC.NURSE ---
Pt has IVF running and will continue during [facility] transport
== END 2021-01-23 11:19 | disposition short-term general hospital (02) ==
PROVIDERS: Emergency Provider Emergency Medicine; PCP Family Medicine
DX: S02.609B Fracture of mandible, unspecified, initial encounter for open fracture (principal); S29.9XXA Unspecified injury of thorax, initial encounter; Z23 Encounter for immunization; F31.9 Bipolar disorder, unspecified; K21.9 Gastro-esophageal reflux disease without esophagitis; E10.9 Type 1 diabetes mellitus without complications; Z86.2 Personal history of diseases of the blood and blood-forming organs and certain disorders involving the immune mechanism; Z98.1 Arthrodesis status; F17.210 Nicotine dependence, cigarettes, uncomplicated; R91.8 Other nonspecific abnormal finding of lung field; V48.5XXA Car driver injured in noncollision transport accident in traffic accident, initial encounter
CPT/HCPCS: 71045; 72170; 90471; 90715; 96361; 96365; 96375; 99285; J0295; J2270; J7030; L0140

== ENCOUNTER → 2021-07-18 02:44 | Outpatient (CLI) | payer BC, MEDICARE, SELFPAY ==
[2021-07-18 17:30] LABS: SARS-CoV-2 RNA PCR Negative
== END ==
PROVIDERS: PCP Family Medicine; Visit Provider Family Medicine
DX: R68.89 Other general symptoms and signs (principal); Z20.822 Contact with and (suspected) exposure to COVID-19
CPT/HCPCS: C9803; U0003; U0005

== ENCOUNTER 2023-05-08 15:11 | Emergency (ER) | payer BC, MEDICARE, SELFPAY ==
[2023-05-08 15:26] LABS: Glucose Point of Care 375 mg/dl (65-105)
[2023-05-08 16:10] VITALS: BP 155/92; PULSE 101; RESP 18; TEMP 36.7; O2SAT 100
[2023-05-08 16:27] LABS: Basophils Percent Auto 0.5 % (0.2-1.2); Eosinophils Absolute Auto 0.3 K/mm3 (0-0.3); Hematocrit 37.5 % (42.0-52.0); Immature Granulocyte Absolute 0.03 K/mm3 (0.00-0.031); Immature Granulocyte Percent A 0.4 % (0-0.5); Lymphocytes Absolute Auto 2.13 K/mm3 (0.9-3.2); Lymphocytes Percent Auto 26.5 % (18.3-44.2); Mean Corpuscular Hemoglobin 32.1 pg (26-34); Mean Corpuscular Volume 100.3 fl (80-100); Monocytes Absolute Auto 0.5 K/mm3 (0.1-0.6); Monocytes Percent Auto 6.7 % (2.6-8.5); Neutrophils Percent Auto 61.9 % (45.5-73.1); Platelet Count Result 282 k/mm3 (150-375); Red Blood Count 3.74 M/mm3 (4.6-6.20); Red Cell Distribution Width 12.3 % (11.5-14.5); White Blood Count 8.1 K/mm3 (4.5-10.0)
[2023-05-08 16:31] LABS: Appearance Urine Clear (Clear); Bilirubin Urine Negative (Negative); Blood Urine Negative (Negative); Color Urine Yellow (Yellow); Glucose Urine UA 3+ mg/dL (Negative); Ketones Urine Negative (Negative); Leukocyte Esterase Ur Negative LEU/UL (Negative); Nitrate Urine Negative (Negative); Protein Urine Negative (Negative); Specific Grav Ur 1.025 (1.001-1.035); Urobilinogen Urine 0.2 mg/dL (<2.0)
[2023-05-08 16:32] LABS: Add Urine Microscopic? NO
[2023-05-08 16:47] LABS: Alanine Aminotransferase 26 U/L (6-50); Albumin Level 3.9 g/dL (3.5-5.1); Alkaline Phosphatase 63 U/L (38-126); Anion Gap 3 mmol/L (8-16); Aspartate Amino Transferase 20 U/L (17-59); Bilirubin,Total 0.2 mg/dL (0.2-1.3); Blood Urea Nitrogen 22 mg/dL (9-20); Calcium 8.4 mg/dL (8.4-10.2); Carbon Dioxide 31 mmol/L (22-30); Chloride 98 mmol/L (98-107); Estimated CRCL calculation 91 ml/min; Estimated Glomerular Filt Rate > 60; Glucose 321 mg/dL (65-110); Magnesium 1.7 mg/dL (1.6-2.3); Phosphorus 3.8 mg/dL (2.5-4.5); Potassium 4.6 mmol/L (3.4-5.0); Sodium 132 mmol/L (137-145)
[2023-05-08 16:52] LABS: Beta-Hydroxybutyrate/Acetoacetate 0.11 mmol/L (0.02-0.27)
[2023-05-08 18:29] LABS: Glucose Point of Care 292 mg/dl (65-105)
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
[2023-05-08] MEDS: BUPRENORPHINE HCL (*CRX) 2 MG SUBLINGUAL TABLET 4 MG PO (19:39)
[2023-05-08 19:40] VITALS: BP 136/83; PULSE 99; RESP 14; O2SAT 100
[2023-05-08 21:11] LABS: Glucose Point of Care 254 mg/dl (65-105)
[2023-05-08] MEDS: INSULIN ASPART (*BKC) 100 UNITS/ML SUB-Q (21:13)
[2023-05-08 21:33] VITALS: BP 132/78; PULSE 74; RESP 16; O2SAT 100
== END 2023-05-08 21:34 | disposition home or self-care (01) ==
PROVIDERS: Student in an Organized Health Care Education/Training Program; Emergency Provider Student in an Organized Health Care Education/Training Program; PCP Family Medicine
DX: E10.65 Type 1 diabetes mellitus with hyperglycemia (principal); D64.9 Anemia, unspecified; K21.9 Gastro-esophageal reflux disease without esophagitis; F31.9 Bipolar disorder, unspecified; Z98.1 Arthrodesis status; F17.200 Nicotine dependence, unspecified, uncomplicated; Z79.4 Long term (current) use of insulin
CPT/HCPCS: 36415; 80053; 81003; 82010; 82948; 83735; 84100; 85025; 99283; A9270; J1815

== ENCOUNTER 2023-06-24 03:49 | Inpatient (IN) | payer BC, MEDICARE, SELFPAY ==
[2023-06-24] VITALS (71 sets, daily range): BP systolic 127–186; BP diastolic 51–83; PULSE 52–119; RESP 11–31; TEMP 36.4–36.7; O2SAT 92–100; BMI 17.0
--- NOTE | 2023-06-24 03:59 | ED.GENADULT ---
HPI - General Adult General Chief complaint: Recheck/Abnormal Lab/Rx Stated complaint: high blood sugar Time Seen by Provider: 06/24/23 03:52 History of Present Illness HPI narrative: Patient brought to the emergency department by EMS from home. His is concerned because he has been getting increasingly confused over the past couple days. Patient states he does not feel well. Denies specific pain. Denies nausea or vomiting but feels lightheaded. He has had similar symptoms in the past when he has been in DKA. Patient is alert and oriented to self and location but not time. Patient also admits to using IV fentanyl regularly. Related Data Home Medications Medication Instructions Recorded Confirmed multivitamin 1 tablet PO DAILY 02/01/21 11/14/22 pjtfncthgryj-rmvkqsm-rgdfb acid tablet PO 12/04/21 11/14/22 500 mcg-vitamin K 10 mcg tablet buprenorphine 4 mg-naloxone 1 mg 1 film buccal BID 05/27/23 05/27/23 sublingual film (Suboxone) insulin glargine-yfgn 100 unit/mL 22 unit subcut QPM 05/27/23 05/27/23 (3 mL) subcutaneous pen (Semglee (insulin glargine-yfgn) Pen) Allergies Allergy/AdvReac Type Severity Reaction Status Date / Time No Known Allergies Allergy Verified 06/24/23 04:00 Review of Systems Review of Systems: ROS unobtainable: Yes unobtainable due to medical condition PMFSH Past Medical History Medical History (Updated 06/24/23 @ 05:44 by Yeni Cummins MD) Abdominal distension Abdominal pain Acute renal insufficiency Anemia Hemoglobin 11.7, hematocrit 37.1, iron 47, vitamin B12 561, folic acid 19.0 on 03/30/2021. Hemoglobin 12.7, vitamin B12 777, folic acid 12.6 on 07/02/2022. Bipolar disorder Dehydration Depression Dislocation of C1/C2 cervical vertebrae DKA (diabetic ketoacidoses) Elevated lactic acid level Encounter for prostate cancer screening PSA 0.24 on 07/02/2022. Fracture, mandible Gastro-esophageal reflux disease without esophagitis Hyperkalemia Hypermagnesemia Hypogonadism male total testosterone 144 with free testosterone 18.8 on 03/30/2021. Testosterone 66 with free testosterone 7.5 on 07/02/2022. Hypotension Ileus Leukocytosis Male erectile dysfunction, unspecified Narcotic abuse, continuous Sepsis Severe sepsis Type 1 diabetes mellitus Umbilical hernia Surgical History Surgical History History of bilateral carpal tunnel release History of decompression of ulnar nerve History of lumbar spinal fusion History of rotator cuff surgery Hx of fusion of cervical spine Family History Family History Grandparent Diabetes mellitus, Onset Age: 80 Mother Patient's mother is in good health Family history of arthritis Family history of Alzheimer's disease Father Cerebrovascular accident, Onset Age: 72 Hypertension Sibling Hypertension Gallbladder cancer Social History Social History (Updated 05/27/23 @ 13:18 by Marlys Hood MA) Smoking packs per day: 1 Smoking cigarettes per day: 20.0 Years smoked: 36 Smoking pack-years: 36.00 Smoking status: Current every day smoker Tobacco type: cigarettes Alcohol intake: never Substance use: former Substance use type: opiates Other substance usage details: Snorts fentanyl Last use: 2 days ago Lack of Transportation: No Lack of Food: Never True Current Housing: I Have Housing Concerned About Future Housing: No Difficulty Paying Gas/Electric Bills: No Difficulty Paying for Meds: No Currently Unemployed: No Education: Trade/Vocational Certificate Difficulty w/ Childcare or Family Care: No Living arrangements: with family Additional living arrangements comments: His . Occupation/Education: retired Additional occupation/education comments: [employer], 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 Gender identity (if verbalized by the patient): Male Spirit
--- NOTE | 2023-06-24 04:01 | ECG_ITS ---
Measurements Intervals [place] Rate: 84 P: 80 SD: 189 QRS: -68 QRSD: 125 T: 63 QT: 359 QTc: 427 Interpretive Statements SINUS RHYTHM WITH MARKED SINUS ARRHYTHMIA POSSIBLE RIGHT ATRIAL ENLARGEMENT [0.25mV P WAVE] LEFT ATRIAL ENLARGEMENT [-0.15mV P WAVE IN V1/V2] MARKED LEFT AXIS DEVIATION [QRS AXIS < -30] RIGHT BUNDLE BRANCH BLOCK [120+ ms QRS DURATION, UPRIGHT V1, 40+ ms S IN I/aVL/V4/V5/V6] SEPTAL MYOCARDIAL INFARCTION , OF INDETERMINATE AGE [40+ ms Q WAVE IN V1/V2] COMPARED TO ECG 07/11/2019 18:12:51 SINUS RHYTHM NOW PRESENT SINUS ARRHYTHMIA NOW PRESENT Electronically Signed On 06-24-2023 16:17:23 CDT by Reema Mock M.D.
[2023-06-24] MEDS: SODIUM CHLORIDE 0.9% IV 1,000 ML 999 ML IV CONT ×2 (04:05→07:09)
[2023-06-24] MEDS: INSULIN HUMAN REGULAR (*BKC) 100 UNITS/ML 10 UNITS IV PUSH (04:06)
[2023-06-24 04:19] LABS: Ethanol < 10 mg/dL (<10)
[2023-06-24 04:31] LABS: Anion Gap 30 mmol/L (8-16); Blood Urea Nitrogen 52 mg/dL (9-20); Calcium 8.5 mg/dL (8.4-10.2); Carbon Dioxide 7 mmol/L (22-30); Chloride 91 mmol/L (98-107); Estimated CRCL calculation 58 ml/min; Estimated Glomerular Filt Rate > 60; Glucose 811 mg/dL (65-110); Magnesium 2.2 mg/dL (1.6-2.3); Phosphorus 6.5 mg/dL (2.5-4.5); Sodium 128 mmol/L (137-145)
[2023-06-24 04:31] LABS: Base Excess ABG -15.3 mEq/l (+/-2.0); Fractional Inspired Oxygen 21 %; Oxygen Saturation ABG 92.7 % (95.0-100.0); Oxyhemoglobin 90.1 % THb (90.0-100.0); PO2 ABG 72.8 mmHg (80.0-100.0); PO2 FiO2 Ratio Arterial Blood 3.47 %; Total Hemoglobin 12.6 g/dL (12.0-18.0)
[2023-06-24 04:34] LABS: Device ROOM AIR; Modified Allen's Test Pass; PCO2 ABG 23.3 mmHg (35.0-45.0); Site Drawn LEFT RADIAL; pH ABG 7.251 (7.350-7.450)
[2023-06-24] MEDS: CALCIUM GLUC 2,000 MG/NS 100ML 2,000 MG/100 ML BAG 100 MG IVPB (04:35)
[2023-06-24] MEDS: SODIUM CHLORIDE 0.9% IV 1,000 ML 150 ML IV CONT (05:03)
[2023-06-24 05:16] LABS: Appearance Urine Clear (Clear); Bilirubin Urine Negative (Negative); Blood Urine Negative (Negative); Color Urine Yellow (Yellow); Glucose Urine UA 3+ mg/dL (Negative); Ketones Urine 3+ mg/dL (Negative); Leukocyte Esterase Ur Negative LEU/UL (Negative); Nitrate Urine Negative (Negative); Protein Urine Negative (Negative); Specific Grav Ur 1.015 (1.001-1.035); Urobilinogen Urine 0.2 mg/dL (<2.0)
[2023-06-24 05:17] LABS: Bacteria Urine None Seen /hpf; Non Pathogenic Casts 0-2; RBC Urine 0-2 /hpf (0-2); Squamous Epithelial Cell Urine None seen /hpf (Few); WBC Urine 0-5 /hpf
[2023-06-24 05:17] LABS: Glucose Point of Care > 500 mg/dl (65-105)
[2023-06-24] MEDS: INSULIN HUMAN REGULAR (*BKC) 100 UNITS in SODIUM CHLORIDE 0.9% IV 99 ML 6.5 UNITS IV CONT (05:21)
[2023-06-24 05:25] LABS: Beta-Hydroxybutyrate/Acetoacetate 8.81 mmol/L (0.02-0.27)
[2023-06-24 05:32] LABS: Amphetamine Screen Urine Negative (Negative); Barbiturate Screen Urine Negative (Negative); Benzodiazepines Screen Urine Negative (Negative); Cannabinoid Screen Urine Negative (Negative); Cocaine Screen Urine Negative (Negative); Methadone Screen Urine Negative (Negative); Opiate Screen Urine Negative (Negative); Phencyclidine Screen Urine Negative (Negative)
[2023-06-24 05:55] LABS: Add Urine Microscopic? YES
[2023-06-24 06:36] LABS: Hematocrit 41.6 % (42.0-52.0); Hemoglobin 13.1 g/dL (14.0-18.0); Mean Corpuscular HGB Conc 31.5 g/dl (32-36); Mean Corpuscular Hemoglobin 31.3 pg (26-34); Mean Corpuscular Volume 99.3 fl (80-100); Mean Platelet Volume 8.6 fl (7.4-10.4); Platelet Count Result 421 k/mm3 (150-375); Red Blood Count 4.19 M/mm3 (4.6-6.20); Red Cell Distribution Width 12.8 % (11.5-14.5); White Blood Count 20.6 K/mm3 (4.5-10.0)
[2023-06-24 06:39] LABS: Glucose Point of Care > 500 mg/dl (65-105)
[2023-06-24 06:55] LABS: Anion Gap 27 mmol/L (8-16); Blood Urea Nitrogen 50 mg/dL (9-20); Calcium 8.9 mg/dL (8.4-10.2); Carbon Dioxide 9 mmol/L (22-30); Chloride 97 mmol/L (98-107); Estimated CRCL calculation 66 ml/min; Estimated Glomerular Filt Rate > 60; Glucose 614 mg/dL (65-110); Potassium 4.6 mmol/L (3.4-5.0); Sodium 133 mmol/L (137-145)
[2023-06-24 06:59] LABS: Band Neutrophils Percent 12 % (0-6); Lymphocytes Absolute Manual 1.44 K/mm3 (1.1-4.5); Monocytes Absolute Manual 0.82 K/mm3 (0.1-0.90); Monocytes Percent Manual 4 % (3-9); Neutrophils Absolute Manual 18.33 K/mm3 (1.3-6.7); Neutrophils Percent Manual 77 % (46-73); Platelet Estimate Increased (Adequate); Total Cells Counted 100
[2023-06-24 07:00] LABS: Schistocytes None Seen (NORMAL)
[2023-06-24 07:28] LABS: Glucose Point of Care > 500 mg/dl (65-105)
--- NOTE | 2023-06-24 07:40 | PC.NURSE ---
This patient, Idris Del Angel, was admitted to Intensive Care Unit-5. Patient/family oriented to hospital policies and general routines including ID bracelet, bed and alarms, visiting hours, pain management, procedures, bathroom and other care routines, personal items, smoking policy, room service/diet, and visiting hours. Information on how to activate the Rapid Response Team has been discussed. Patient/Family are encouraged to report perceived risks to care and to ask questions if they do not understand what they are told or what they should do.
[2023-06-24 08:10] LABS: Glucose Point of Care 455 mg/dl (65-105)
[2023-06-24 08:17] LABS: Glucose Point of Care > 600 mg/dl (65-105)
--- NOTE | 2023-06-24 08:43 | WPDCNINT ---
Assessment and Plan Assessment and plan (1) DKA (diabetic ketoacidosis): Qualifiers: Diabetes mellitus complication detail: without coma Diabetes mellitus type: type 1 Qualified Code(s): E10.10 - Type 1 diabetes mellitus with ketoacidosis without coma Code(s): E11.10 - Type 2 diabetes mellitus with ketoacidosis without coma Status: Acute Assessment and Plan: DKA secondary to noncompliance. No objective sign of infection at this time. His UA looks clear and he does not have any respiratory symptoms The patient was given 2 L iVF bolus and and is currently on infusion. Increase the rate to 200 mL/hour Insulin infusion and Q1H glucose monitoring Serial labs ordered Monitor and replace electrolytes as needed Will transition to SC insulin once AG is closed And p.o. (2) Fentanyl dependence: Code(s): F11.20 - Opioid dependence, uncomplicated Status: Acute Assessment and Plan: History of IV fentanyl use Screen for hepatitis and HIV which I have discussed with the patient he is agreeable Monitor for opioid withdrawal Start clonidine as patient is hypertensive (3) Essential (primary) hypertension: Code(s): I10 - Essential (primary) hypertension Status: Acute Assessment and Plan: Clonidine P.r.n. labetalol Plan DVT prophylaxis -Lovenox Nutrition -NPO Code Status - Full Code Requested nurse to clarify his most recent medications from pharmacy. Total Critical Care Time - 35 minutes Due to a high probability of clinically significant, life threatening deterioration, the patient required my highest level of preparedness to intervene emergently and I personally spent this critical care time directly and personally managing the patient. This critical care time included obtaining a history; examining the patient; pulse oximetry; ordering and review of studies; arranging urgent treatment with development of a management plan; evaluation of patient's response to treatment; frequent reassessment; and discussions with other providers. It was exclusive of separately billable procedures and treating other patients and teaching time. Please see Assessment and Plan section and the rest of the note for further information on patient assessment and treatment Activities Director Consult Note Consult date: 06/24/23 Reason for consult: DKA HPI: Idris Del Angel is a 52 year old male with past medical history of opioid abuse and diabetes presented with chief complaint of feeling weak and elevated blood sugars. Patient states that he has not been taking his insulin for last few days and he has been feeling weak and has had high blood sugars and see came to the ER. Patient admits to IV fentanyl use 2 to 3 times a day and smoking. He states his last insulin dose was 2 to 3 days ago although he was unable to tell me the amount of insulin he admits to some cell. He states his sugars have been running high and he has been feeling weak. He denies any fever chest pain shortness of breath cough nausea vomiting abdominal pain diarrhea dysuria hematuria dizziness or lightheadedness. All other systems were reviewed and were negative. Patient has not been taking any of his medications and is not sure of all the details of medications he is supposed to be on. In the ED patient was found to be dehydrated tachycardic and hypertensive. Blood sugars elevated at 614 a.m. and had positive anion gap and beta hydroxybutyrate. Patient was given IV fluid bolus and started on IV insulin infusion and IV fluids and admitted to ICU for further evaluation management Review of Systems Review of Systems: All systems reviewed & are unremarkable except as noted in HPI and below (HPI) [facility] Past Medical History Medical History (Updated 06/24/23 @ 05:44 by Yeni Cummins MD) Abdominal distension Abdominal pain Acute renal insufficiency Anemia Hemoglobin 11.7, hematocrit 37.1, iron 47, vitamin B12 561, folic acid 19.
[2023-06-24 09:33] LABS: HIV 1/2 Ab P24 Ag Result Negative (Negative)
[2023-06-24] MEDS: ENOXAPARIN 40 MG/0.4 ML SYRINGE SUB-Q (09:37)
[2023-06-24 09:41] LABS: Glucose Point of Care 375 mg/dl (65-105)
[2023-06-24 10:26] LABS: Glucose Point of Care 307 mg/dl (65-105)
[2023-06-24 11:14] LABS: Anion Gap 11 mmol/L (8-16); Blood Urea Nitrogen 45 mg/dL (9-20); Calcium 8.8 mg/dL (8.4-10.2); Carbon Dioxide 20 mmol/L (22-30); Chloride 104 mmol/L (98-107); Estimated CRCL calculation 73 ml/min; Estimated Glomerular Filt Rate > 60; Glucose 313 mg/dL (65-110); Potassium 4.1 mmol/L (3.4-5.0); Sodium 135 mmol/L (137-145)
[2023-06-24] MEDS: SODIUM CHLORIDE 0.9% IV 1,000 ML 200 ML IV CONT ×2 (11:16→16:27)
[2023-06-24] MEDS: cloNIDine HCL 0.1 MG TABLET PO ×2 (11:17→20:19)
[2023-06-24 11:21] LABS: Glucose Point of Care 267 mg/dl (65-105)
[2023-06-24] MEDS: INSULIN HUMAN REGULAR (*BKC) 100 UNITS in SODIUM CHLORIDE 0.9% IV 99 ML 18 UNITS IV CONT (11:52)
--- NOTE | 2023-06-24 11:55 | PCFNICU ---
ICU Rounding Note: Pt current nutrition is NPO. Nutrition recommendation: advance to [facility] diet per MD orders. Last recorded weight is 53.9 kg. Bowel Motility:No BM reported Labs Reviewed:Glu 614, Na 133, BUN 50, HgbA1c 9.0% Meds Noted:NS, Insulin Skin:WNL Additional Notes: DKA admit. Spoke with nursing today, patient has history of opioid abuse. Diabetic and not taking medications. Plan if for NPO today. Will follow up when diet order advances. Following daily in ICU rounds.
[2023-06-24 12:01] LABS: Glucose Point of Care 225 mg/dl (65-105)
[2023-06-24 13:07] LABS: Glucose Point of Care 122 mg/dl (65-105)
[2023-06-24 14:00] LABS: Glucose Point of Care 98 mg/dl (65-105)
[2023-06-24 14:26] LABS: Anion Gap 8 mmol/L (8-16); Blood Urea Nitrogen 41 mg/dL (9-20); Calcium 9.2 mg/dL (8.4-10.2); Carbon Dioxide 25 mmol/L (22-30); Chloride 104 mmol/L (98-107); Estimated CRCL calculation 73 ml/min; Estimated Glomerular Filt Rate > 60; Glucose 106 mg/dL (65-110); Sodium 137 mmol/L (137-145)
[2023-06-24 15:09] LABS: Glucose Point of Care 121 mg/dl (65-105)
[2023-06-24 16:06] LABS: Glucose Point of Care 162 mg/dl (65-105)
[2023-06-24 16:59] LABS: Glucose Point of Care 188 mg/dl (65-105)
[2023-06-24] MEDS: INSULIN GLARGINE (*BKC) 100 UNITS/ML 10 UNITS SUB-Q (17:42)
[2023-06-24] MEDS: LACTATED RINGERS 1,000 ML 100 ML IV CONT (17:42)
[2023-06-24] MEDS: ONDANSETRON INJ 4 MG/2 ML VIAL IV PUSH (18:07)
[2023-06-24 18:10] LABS: Glucose Point of Care 218 mg/dl (65-105)
[2023-06-24 19:01] LABS: Glucose Point of Care 198 mg/dl (65-105)
[2023-06-24 20:29] LABS: Glucose Point of Care 124 mg/dl (65-105)
[2023-06-24] MEDS: MORPHINE SULFATE (*CRX) 2 MG/ML INJ IV PUSH ×2 (20:58→21:58)
--- NOTE | 2023-06-24 21:32 | PC.NURSE ---
Patient screaming, moaning and writhing around in bed , patient states he has back pain administered prn morphine . Patient begins screaming and throwing things across room.
[2023-06-24] MEDS: MORPHINE SULFATE (*CRX) 4 MG/ML INJ IV PUSH (23:31)
[2023-06-24 23:36] LABS: Glucose Point of Care 82 mg/dl (65-105)
[2023-06-25] VITALS (8 sets, daily range): BP systolic 114–145; BP diastolic 60–71; PULSE 52–101; RESP 18–36; TEMP 36.8–37.8; O2SAT 94–100
[2023-06-25] MEDS: MORPHINE SULFATE (*CRX) 4 MG/ML INJ IV PUSH ×2 (01:42→03:51)
[2023-06-25 03:49] LABS: Glucose Point of Care 132 mg/dl (65-105)
[2023-06-25] MEDS: cloNIDine HCL 0.1 MG TABLET PO (03:50)
[2023-06-25] MEDS: LACTATED RINGERS 1,000 ML 100 ML IV CONT (03:51)
[2023-06-25 03:53] LABS: Hematocrit 32.5 % (42.0-52.0); Hemoglobin 11.1 g/dL (14.0-18.0); Mean Corpuscular HGB Conc 34.2 g/dl (32-36); Mean Corpuscular Hemoglobin 30.7 pg (26-34); Mean Platelet Volume 8.4 fl (7.4-10.4); Platelet Count Result 297 k/mm3 (150-375); Red Blood Count 3.61 M/mm3 (4.6-6.20); Red Cell Distribution Width 12.6 % (11.5-14.5); White Blood Count 17.3 K/mm3 (4.5-10.0)
--- NOTE | 2023-06-25 04:04 | PC.NURSE ---
4545-Patient continues to be restless and agitated, screaming and yelling in room demanding pain medication for his back pain and medication to help him sleep.
[2023-06-25 04:41] LABS: Alanine Aminotransferase 24 U/L (6-50); Alkaline Phosphatase 93 U/L (38-126); Anion Gap 4 mmol/L (8-16); Aspartate Amino Transferase 34 U/L (17-59); Bilirubin,Total 0.8 mg/dL (0.2-1.3); Blood Urea Nitrogen 29 mg/dL (9-20); Calcium 7.7 mg/dL (8.4-10.2); Carbon Dioxide 23 mmol/L (22-30); Chloride 104 mmol/L (98-107); Estimated CRCL calculation 94 ml/min; Estimated Glomerular Filt Rate > 60; Glucose 145 mg/dL (65-110); Magnesium 1.9 mg/dL (1.6-2.3); Potassium 3.9 mmol/L (3.4-5.0); Sodium 131 mmol/L (137-145)
[2023-06-25] MEDS: ENOXAPARIN 40 MG/0.4 ML SYRINGE SUB-Q (08:53)
[2023-06-25] MEDS: PANTOPRAZOLE 40 MG TABLET PO (08:53)
[2023-06-25] MEDS: INSULIN ASPART (*BKC) 100 UNITS/ML SUB-Q ×2 (08:58)
[2023-06-25 09:02] LABS: Glucose Point of Care 244 mg/dl (65-105)
--- NOTE | 2023-06-25 09:37 | WPDINTPN ---
Progress Note: A&P Assessment and Plan (1) DKA (diabetic ketoacidosis): Qualifiers: Diabetes mellitus complication detail: without coma Diabetes mellitus type: type 1 Qualified Code(s): E10.10 - Type 1 diabetes mellitus with ketoacidosis without coma Code(s): E11.10 - Type 2 diabetes mellitus with ketoacidosis without coma Status: Acute Assessment and Plan: DKA secondary to noncompliance. No objective sign of infection at this time. His UA looks clear and he does not have any respiratory symptoms Patient was treated with IV fluids and IV insulin. His gap has closed and clinically has improved Switched to Lantus with meal insulin and sliding scale insulin Diet resume Consult public health educator and dietitian (2) Fentanyl dependence: Code(s): F11.20 - Opioid dependence, uncomplicated Status: Acute Assessment and Plan: History of IV fentanyl use HIV screen negative Hepatitis screen ordered and pending P.r.n. morphine for back pain Continue clonidine for hypertension (3) Essential (primary) hypertension: Code(s): I10 - Essential (primary) hypertension Status: Acute Assessment and Plan: Clonidine P.r.n. labetalol Plan DVT prophylaxis -Lovenox Nutrition -diabetic diet Code Status - Full Code Incentive spirometry and up in chair Transfer out of ICU today Subjective Date/time seen: 06/25/23 Overnight events reviewed. Afebrile Much more awake and alert this morning and denies any new complaints. He states he feels much better and would like to eat his food. Review of system is positive for back pain which is chronic and he states that he has had multiple back surgeries. Patient admitted today to using fentanyl every day. He states he was on methadone about an year ago and quit taking it since he was using fentanyl along with the. He also was on Suboxone which he has not taken for many days now. It was being prescribed by [facility]. Off insulin infusion Overnight patient refused IV fluids and disconnected his IV. He was uncooperative with the staff Other vitals acceptable Review of Systems Review of Systems: All systems reviewed & are unremarkable except as noted in HPI and below (HPI) Exam Narrative: General: Pt is alert awake and no acute distress Lungs/Chest: Trachea central Clear BS B/L, No crackles or wheezing. Cardiac: Tachycardic dynamic. Normal S1 S2. No murmurs Circulation: Pedal pulses are intact and symmetrical. Abdomen: Normal bowel sounds.. Soft. NT. ND. Extremities: No clubbing, cyanosis or edema. Warm : Malloy in place Neurologic: AO x x3 PERRL, follows commands moves all 4 extremities Skin: No Rash, several scabbed wounds in various stages of healing all over his body HEENT: Oral mucosa is dry Objective Data Vital Signs Vital Signs: Vital Signs - 24 hr 06/24/23 10:00 06/24/23 10:00 06/24/23 12:00 Temperature 36.7 C Pulse Rate 90 104 H 94 Respiratory Rate 24 H 28 H Blood Pressure 155/56 H 127/67 Pulse Oximetry 95 94 Oxygen Delivery Oxygen Flow Rate 06/24/23 12:00 06/24/23 12:00 06/24/23 14:00 Temperature Pulse Rate 89 89 Respiratory Rate Blood Pressure Pulse Oximetry 95 Oxygen Delivery Nasal Cannula Oxygen Flow Rate 2 06/24/23 14:00 06/24/23 16:00 06/24/23 16:00 Temperature Pulse Rate 89 99 Respiratory Rate 28 H Blood Pressure 148/62 H Pulse Oximetry 96 95 Oxygen Delivery Nasal Cannula Oxygen Flow Rate 2 06/24/23 16:00 06/24/23 18:00 06/24/23 18:00 Temperature 36.4 C L 36.4 C L Pulse Rate 74 57 L 57 L Respiratory Rate 20 24 H Blood Pressure 139/73 147/64 H Pulse Oximetry 100 99 Oxygen Delivery Oxygen Flow Rate 06/24/23 20:00 06/24/23 20:00 06/24/23 10:15 Temperature Pulse Rate 83 83 97 Respiratory Rate 16 31 H Blood Pressure Pulse Oximetry 100 96 Oxygen Delivery Nasal Cannula Oxygen Flow Rate 2 06/24/23
[2023-06-25 11:18] LABS: Hepatitis B Surface Antigen Negative (Negative)
[2023-06-25 11:23] LABS: Hepatitis B Core IgM Result Negative (Negative)
[2023-06-25 11:35] LABS: Hepatitis B Surface Anti Res Negative; Hepatitis C Virus Antibody Negative (Negative)
--- NOTE | 2023-07-31 13:19 | P.DS_ITS ---
DS: Admitting Diagnosis Discharge Date 06/25/23 Admitting Diagnosis Hyperglycemia DS: Discharge Diagnosis Discharge Diagnosis Plan DKA DS: Summary Hospital Course Hospital Course: 52-year-old male with past medical history of opioid abuse and diabetes was admitted with hypoglycemia and was diagnosed with DKA patient admitted to IV fentanyl use smoking and was noncompliant with his insulin. Patient was dehydrated on presentation tachycardic and hypertensive. Patient was treated with IV fluids insulin infusion and serial labs. His workup did not suggest any infection by next day. Closed and patient was transition to subcutaneous insulin and was resumed on diet. A medical educator and dietitian were consulted. His HIV screen was negative. She was transferred out of ICU to IMU. Patient at that time started refusing treatment including IV fluids and disconnected his IVs. Patient became uncooperative with the staff. He was alert oriented x3 and requested to leave. Patient was explained that he had to leave against medical advice if he wanted to leave as he was not ready to be discharged. Patient elected to leave against medical advice. Patient was explained the risk of leaving AMA including deterioration of his condition which was diabetes controlled which could prove life-threatening and lethal and detrimental to his life. Patient verbalized understanding and still elected to leave against medical advice and signed the form and left. Patient was admitted by hospitalist service but was never seen by the hospitalist physician. I was ICU mental health consultant and evaluated patient on the morning of and 06/25 Time Spent with Patient Time attestation: Total time spent providing and/or coordinating discharge services: Discharge Plan Discharge Consulting providers: Reema Mock Patient Disposition: Left Against Medical Advice Patient Instructions: How to Stop Smoking (GEN) Discharge Medications: No Action fluoxetine 20 mg capsule 20 mg PO DAILY Qty: 90 3RF testosterone cypionate [Depo-Testosterone] 200 mg/mL oil 200 mg IM .[id number] Rx Instructions: as a single dose multivitamin Tablet 1 tablet PO DAILY insulin glargine-yfgn [Semglee(insulin glarg-yfgn)Pen] 100 unit/mL (3 mL) insulin pen 22 unit subcut QPM insulin lispro [Humalog KwikPen Insulin] 100 unit/mL insulin pen 8 unit SUB-Q TID 90 Days Qty: 21.6 3RF Rx Instructions: 8 units TID with meals and SS 1 unit for every 50 over 150 hydroxyzine pamoate 50 mg capsule 50 mg PO TID PRN (Reason: Anxiety) Qty: 270 3RF mirtazapine 30 mg tablet 30 mg PO QHS Qty: 90 3RF tizanidine 4 mg tablet 4 mg PO BID PRN (Reason: muscle spasticity) Qty: 60 5RF amitriptyline 25 mg tablet 25 mg PO QHS Qty: 90 3RF quetiapine 200 mg tablet 200 mg PO QHS Qty: 90 3RF ascorbic acid (vitamin C) 500 mg tablet 500 mg PO DAILY Qty: 90 3RF (DME) OneTouch Verio test strips Strip See Rx Instructions .Route Qty: 100 3RF Rx Instructions: checking blood sugar 3 times a day omeprazole 20 mg capsule,delayed release(DR/EC) 20 mg PO BID Qty: 180 3RF (DME) pen needle, diabetic [BD Ultra-Fine Cristina Pen Needle] 32 gauge x 5/32 needle See Rx Instructions .Route Qty: 360 3RF Rx Instructions: As directed Date of admission: 06/24/23 06:00 Primary Care Provider: Parmjit Mcdermott Admitting Provider: Raffaele Martinez Attending physician on admission: Enrique Sepulveda Condition: Serious
== END 2023-06-25 10:19 | disposition left against medical advice (07) | DRG 638 ==
LOC: ANHED 05:44 → ANHICU 06:24
PROVIDERS: Admitting Provider Family Medicine; Emergency Provider Emergency Medicine; PCP Family Medicine; Visit Provider Internal Medicine
DX: E10.10 Type 1 diabetes mellitus with ketoacidosis without coma (principal); F11.20 Opioid dependence, uncomplicated; D64.9 Anemia, unspecified; E87.5 Hyperkalemia; E86.0 Dehydration; F31.9 Bipolar disorder, unspecified; F17.210 Nicotine dependence, cigarettes, uncomplicated; G89.29 Other chronic pain; I10 Essential (primary) hypertension; K21.9 Gastro-esophageal reflux disease without esophagitis; M54.9 Dorsalgia, unspecified; Z79.4 Long term (current) use of insulin; Z98.1 Arthrodesis status
CPT/HCPCS: 36415; 36600; 80048; 80053; 80307; 81001; 82010; 82805; 82948; 83036; 83735; 84100; 85025; 85027; 86703; 86704; 86705; 86706; 86803; 87340; 93005; 96361; 96365; 96375; 99285; A9270; G0432; J0613; J1650; J1815; J2270; J2405; J7030; J7120

== ENCOUNTER 2023-07-06 05:17 | Observation (INO) | payer BC, MEDICARE, SELFPAY ==
[2023-07-06] VITALS (31 sets, daily range): BP systolic 131–177; BP diastolic 49–81; PULSE 91–130; RESP 10–28; TEMP 36.8–37.6; O2SAT 96–100; BMI 16.2
--- NOTE | ~2023-07-06 | XR_ITS ---
EXAMINATION: XR chest 1V portable 07/06/2023 05:47 INDICATION: Hyperglycemia. Vomiting. PROCEDURE: AP portable chest COMPARISON: 01/23/2021 2 FINDINGS: The lungs are clear. The cardiomediastinal silhouette is within normal limits. There are no pleural effusions. There is no pneumothorax suspected. IMPRESSION: 1: NO ACUTE CARDIOPULMONARY DISEASE. Reviewed, dictated and finalized at location A.
--- NOTE | 2023-07-06 05:29 | ECG_ITS ---
Measurements Intervals [place] Rate: 104 P: 79 AK: 169 QRS: -63 QRSD: 126 T: 54 QT: 349 QTc: 460 Interpretive Statements SINUS TACHYCARDIA RIGHT ATRIAL ENLARGEMENT [0.3mV P WAVE] POSSIBLE LEFT ATRIAL ENLARGEMENT [-0.1mV P WAVE IN V1/V2] POSSIBLE RIGHT VENTRICULAR CONDUCTION DELAY [RSR (QR) IN V1/V2] LEFT AXIS DEVIATION ABNORMAL ECG COMPARED TO ECG 06/24/2023 04:04:11 HEART RATE IS INCREASED AND PRECORDIAL T-WAVE ABNORMALITIES IMPROVED Electronically Signed On 07-06-2023 8:30:20 CDT by Dax Mayer M.D.
[2023-07-06 05:31] LABS: Glucose Point of Care > 500 mg/dl (65-105)
--- NOTE | 2023-07-06 05:36 | ED.GENADULT ---
HPI - General Adult General Chief complaint: Recheck/Abnormal Lab/Rx Stated complaint: HI GLUCOSE, N/V, LETHARGIC Time Seen by Provider: 07/06/23 05:27 History of Present Illness HPI narrative: Patient 82-year-old gentleman who presents the emergency department with chief complaint of hyperglycemia. Patient reports that today he started having nausea and vomiting did not take his insulin and his blood sugars have increased. EMS reported that his blood sugar was greater than 500 and the patient reports that he feels somewhat short of breath and feels similar to whenever he has DKA in the past. Related Data Home Medications Medication Instructions Recorded Confirmed multivitamin 1 tablet PO DAILY 02/01/21 07/02/23 insulin glargine-yfgn 100 unit/mL 22 unit subcut QPM 05/27/23 07/02/23 (3 mL) subcutaneous pen (Semglee (insulin glargine-yfgn) Pen) buprenorphine 8 mg-naloxone 2 mg film 06/24/23 07/02/23 sublingual film hydroxyzine pamoate 50 mg capsule 50 mg PO TID PRN Anxiety 06/24/23 07/02/23 amitriptyline 25 mg tablet 25 mg PO QHS 07/02/23 07/02/23 quetiapine 50 mg tablet 50 mg PO QHS 07/02/23 07/02/23 testosterone cypionate 200 mg/mL 200 mg IM .[id number] 07/02/23 07/02/23 intramuscular oil (Depo-Testosterone) Allergies Allergy/AdvReac Type Severity Reaction Status Date / Time No Known Allergies Allergy Verified 07/02/23 15:11 Review of Systems Review of Systems: A 10 system review of systems was completed on the patient and is negative except for what is stated in the HPI. Nursing and ancillary documentation was reviewed. [facility] Past Medical History Medical History Abdominal distension Abdominal pain Acute renal insufficiency Anemia Hemoglobin 11.7, hematocrit 37.1, iron 47, vitamin B12 561, folic acid 19.0 on 03/30/2021. Hemoglobin 12.7, vitamin B12 777, folic acid 12.6 on 07/02/2022. Bipolar disorder Dehydration Depression Dislocation of C1/C2 cervical vertebrae DKA (diabetic ketoacidoses) Elevated lactic acid level Encounter for prostate cancer screening PSA 0.24 on 07/02/2022. Fracture, mandible Gastro-esophageal reflux disease without esophagitis Hyperkalemia Hypermagnesemia Hypogonadism male total testosterone 144 with free testosterone 18.8 on 03/30/2021. Testosterone 66 with free testosterone 7.5 on 07/02/2022. Hypotension Ileus Leukocytosis Male erectile dysfunction, unspecified Narcotic abuse, continuous Sepsis Severe sepsis Type 1 diabetes mellitus Umbilical hernia Surgical History Surgical History History of bilateral carpal tunnel release History of decompression of ulnar nerve History of lumbar spinal fusion History of rotator cuff surgery Hx of fusion of cervical spine Family History Family History Grandparent Diabetes mellitus, Onset Age: 80 Mother Patient's mother is in good health Family history of arthritis Family history of Alzheimer's disease Father Cerebrovascular accident, Onset Age: 72 Hypertension Sibling Hypertension Gallbladder cancer Social History Social History Smoking packs per day: 1 Smoking cigarettes per day: 20.0 Years smoked: 36 Smoking pack-years: 36.00 Smoking status: Current every day smoker Alcohol intake: never Substance use: former Substance use type: opiates Other substance usage details: Snorts fentanyl Last use: 2 days ago Lack of Transportation: No Lack of Food: Never True Current Housing: I Have Housing Concerned About Future Housing: Decline to Answer Difficulty Paying Gas/Electric Bills: Decline to Answer Difficulty Paying for Meds: Decline to Answer Currently Unemployed: Decline to Answer Education: Decline to A
[2023-07-06] MEDS: ONDANSETRON INJ 4 MG/2 ML VIAL IV PUSH (05:48)
[2023-07-06] MEDS: SODIUM CHLORIDE 0.9% IV 1,000 ML 999 ML IV CONT ×3 (05:48→07:45)
[2023-07-06] MEDS: PROCHLORPERAZINE EDISYLATE 10 MG/2 ML VIAL IV PUSH (05:48)
[2023-07-06 05:51] LABS: Basophils Absolute Auto 0.1 K/mm3 (0.0-0.1); Basophils Percent Auto 0.3 % (0.2-1.2); Hematocrit 42.4 % (42.0-52.0); Hemoglobin 13.5 g/dL (14.0-18.0); Immature Granulocyte Absolute 0.23 K/mm3 (0.00-0.031); Immature Granulocyte Percent A 0.8 % (0-0.5); Lymphocytes Absolute Auto 1.26 K/mm3 (0.9-3.2); Lymphocytes Percent Auto 4.6 % (18.3-44.2); Mean Corpuscular HGB Conc 31.8 g/dl (32-36); Mean Corpuscular Hemoglobin 30.3 pg (26-34); Mean Corpuscular Volume 95.1 fl (80-100); Mean Platelet Volume 8.8 fl (7.4-10.4); Monocytes Absolute Auto 0.8 K/mm3 (0.1-0.6); Monocytes Percent Auto 3.1 % (2.6-8.5); Neutrophils Percent Auto 91.2 % (45.5-73.1); Platelet Count Result 496 k/mm3 (150-375); Red Blood Count 4.46 M/mm3 (4.6-6.20); Red Cell Distribution Width 13.8 % (11.5-14.5); White Blood Count 27.4 K/mm3 (4.5-10.0)
[2023-07-06 05:59] LABS: Alveolar/Arterial O2 Gradient 28.4 mmHg; Base Excess ABG -8.8 mEq/l (+/-2.0); Carboxyhemoglobin 0.5 % THb (0-2.0); Fractional Inspired Oxygen 21 %; Methemoglobin ABG 0.3 %THb (0-1.5); Oxygen Saturation ABG 96.7 % (95.0-100.0); Oxyhemoglobin 93.7 % THb (90.0-100.0); PO2 FiO2 Ratio Arterial Blood 4.24 %; Reduced Hemoglobin 5.5 %THb (0-5.0); Total Hemoglobin 12.8 g/dL (12.0-18.0); pH ABG 7.363 (7.350-7.450)
[2023-07-06 06:00] LABS: Modified Allen's Test Pass; Site Drawn RIGHT RADIAL
[2023-07-06 06:04] LABS: Phosphorus 4.9 mg/dL (2.5-4.5)
[2023-07-06 06:07] LABS: Lactic Acid Reflex 4.5 mmol/L (0.7-2.0)
[2023-07-06 06:11] LABS: Prothrombin Time 13.1 Seconds (11.1-14.7)
[2023-07-06 06:12] LABS: Partial Thromboplastin Time 27.3 SECONDS (22.3-36.8)
[2023-07-06 06:14] LABS: Troponin I 0.014 ng/mL (0.000-0.034)
[2023-07-06 06:15] LABS: Alanine Aminotransferase 24 U/L (6-50); Albumin Level 4.1 g/dL (3.5-5.1); Alkaline Phosphatase 140 U/L (38-126); Anion Gap 27 mmol/L (8-16); Aspartate Amino Transferase 23 U/L (17-59); Bilirubin,Total 0.7 mg/dL (0.2-1.3); Blood Urea Nitrogen 40 mg/dL (9-20); Calcium 8.9 mg/dL (8.4-10.2); Carbon Dioxide 15 mmol/L (22-30); Chloride 88 mmol/L (98-107); Estimated CRCL calculation 55 ml/min; Estimated Glomerular Filt Rate > 60; Glucose 719 mg/dL (65-110); Lipase 19 U/L (23-300); Magnesium 1.8 mg/dL (1.6-2.3); Potassium 5.1 mmol/L (3.4-5.0); Sodium 130 mmol/L (137-145)
[2023-07-06 06:28] LABS: Influenza A QL RT-PCR Negative (Negative); Influenza B QL RT-PCR Negative (Negative); Procalcitonin 0.2 ng/mL; SARS-CoV-2 RNA PCR Negative (Negative)
[2023-07-06] MEDS: INSULIN HUMAN REGULAR (*BKC) 100 UNITS/ML 9 UNITS IV PUSH (06:33)
[2023-07-06 06:59] LABS: Beta-Hydroxybutyrate/Acetoacetate 8.46 mmol/L (0.02-0.27)
[2023-07-06] MEDS: INSULIN HUMAN REGULAR (*BKC) 100 UNITS in SODIUM CHLORIDE 0.9% IV 99 ML 6 UNITS IV CONT (07:00)
[2023-07-06 07:58] LABS: Anion Gap 26 mmol/L (8-16); Blood Urea Nitrogen 40 mg/dL (9-20); Calcium 8.3 mg/dL (8.4-10.2); Carbon Dioxide 12 mmol/L (22-30); Chloride 95 mmol/L (98-107); Estimated CRCL calculation 60 ml/min; Estimated Glomerular Filt Rate > 60; Glucose 639 mg/dL (65-110); Potassium 4.1 mmol/L (3.4-5.0); Sodium 133 mmol/L (137-145)
[2023-07-06 07:59] LABS: Glucose Point of Care > 500 mg/dl (65-105)
[2023-07-06 08:25] LABS: Hemoglobin A1C 9.1 % (<5.7)
--- NOTE | 2023-07-06 08:30 | ADMGEN ---
This patient, Idris Del Angel, was admitted to Intensive Care Unit-2. Patient/family oriented to hospital policies and general routines including ID bracelet, bed and alarms, visiting hours, pain management, procedures, bathroom and other care routines, personal items, smoking policy, room service/diet, and visiting hours. Information on how to activate the Rapid Response Team has been discussed. Patient/Family are encouraged to report perceived risks to care and to ask questions if they do not understand what they are told or what they should do.
[2023-07-06] MEDS: SODIUM CHLORIDE 0.9% IV 1,000 ML 150 ML IV CONT (08:36)
[2023-07-06 08:48] LABS: Reflex Lactic Acid Yes or No Add Lactic
--- NOTE | 2023-07-06 08:48 | PC.NURSE ---
Dr. Chery bedside.Updated on current insulin gtt rate.Will recheck glucose level at 0900 then review
--- NOTE | 2023-07-06 09:06 | WPDCNINT ---
Assessment and Plan Assessment and plan (1) DKA (diabetic ketoacidosis): Qualifiers: Diabetes mellitus complication detail: without coma Diabetes mellitus type: type 1 Qualified Code(s): E10.10 - Type 1 diabetes mellitus with ketoacidosis without coma Code(s): E11.10 - Type 2 diabetes mellitus with ketoacidosis without coma Status: Acute Assessment and Plan: 07/06/2023: Patient presented with nausea and vomiting along with hyperglycemia. Patient was found to be in DKA in the ER with elevated blood sugars, anion gap, beta hydroxybutyrate. - Patient was given 3 L of IV fluid bolus, started on insulin infusion per DKA protocol -continue IV insulin drip -hemoglobin A1c 9.1 this admission -continue IV fluids per DKA protocol -will transition to long-acting insulin and sliding scale insulin once anion gap closes -serial BMPs -lactic acid elevated likely related to dehydration and hypovolemia, will repeat lactic levels -chest x-ray and UA are negative, no signs of infections at this time, no antibiotics recommended will continue to monitor (2) Nausea and vomiting: Code(s): R11.2 - Nausea with vomiting, unspecified Status: Acute Assessment and Plan: Resolved (3) Tobacco dependence: Code(s): F17.200 - Nicotine dependence, unspecified, uncomplicated Status: Chronic Assessment and Plan: Patient smokes 1 packet per day for many years, not ready to be counseled this time since he is somnolent and mildly confused (4) Fentanyl dependence: Code(s): F11.20 - Opioid dependence, uncomplicated Status: Acute Assessment and Plan: Patient states he snorts fentanyl daily (5) Essential (primary) hypertension: Code(s): I10 - Essential (primary) hypertension Status: Acute Assessment and Plan: Labetalol p.r.n. -will add clonidine Plan DVT prophylaxis: Lovenox Stress ulcer prophylaxis: Protonix due to history of GERD Nutrition: NPO except ice chips Code Status: Full code Critical Care Time Spent: 47 minutes Due to a high probability of clinically significant, life threatening deterioration, the patient required my highest level of preparedness to intervene emergently and I personally spent this critical care time directly and personally managing the patient. This critical care time included obtaining a history; examining the patient; pulse oximetry; ordering and review of studies; arranging urgent treatment with development of a management plan; evaluation of patient's response to treatment; frequent reassessment; and discussions with other providers. It was exclusive of separately billable procedures and treating other patients and teaching time. Please see Assessment and Plan section and the rest of the note for further information on patient assessment and treatment This dictation may have been done utilizing a voice recognition system. Attempts have been made to correct errors. However, there may be uncorrected grammatical, spelling, and recognitions errors present. Mottler Operator Consult Note Consult date: 07/06/23 Reason for consult: Diabetic ketoacidosis, tachycardia, elevated blood sugars, lactic acidosis HPI: Idris Del Angel is a 52 year old male past medical history of diabetes type 1, narcotic abuse, depression, bipolar, hypogonadism, history of ileus, presented the ED on 07/06 with complaints of hyperglycemia, nausea, vomiting. Patient has not taken his insulin the last 4-5 days, he is not sure. He also complains of generalized weakness. In the ER patient says blood sugars were of > 700, elevated anion gap along with elevated beta hydroxybutyrate. UA showed positive glucose and ketones. Patient was diagnosed with DKA, given a total of 3 L of IV fluid bolus. Started on insulin infusion and transferred to the ICU for further management Patient seen and examined the ICU arrival, denies any chest pain, shortness breath, fevers, cough, a
[2023-07-06] MEDS: cloNIDine HCL 0.1 MG TABLET PO ×2 (09:33→17:15)
[2023-07-06] MEDS: PANTOPRAZOLE SODIUM IV 40 MG VIAL IV PUSH (10:17)
[2023-07-06] MEDS: LABETALOL HCL INJ 100 MG/20 ML VIAL 20 MG IV PUSH (10:21)
[2023-07-06 11:18] LABS: Anion Gap 10 mmol/L (8-16); Blood Urea Nitrogen 39 mg/dL (9-20); Calcium 8.3 mg/dL (8.4-10.2); Carbon Dioxide 23 mmol/L (22-30); Chloride 104 mmol/L (98-107); Estimated CRCL calculation 81 ml/min; Estimated Glomerular Filt Rate > 60; Glucose 287 mg/dL (65-110); Lactic Acid 2.4 mmol/L (0.7-2.0); Potassium 3.9 mmol/L (3.4-5.0); Sodium 137 mmol/L (137-145)
--- NOTE | 2023-07-06 11:34 | PM.IMHP ---
H&P: HPI History of Present Illness Date/Time: 07/06/23 11:34 Chief Complaint: Patient 52-year-old gentleman who presents the emergency department with chief complaint of hyperglycemia.? Patient reports that today he started having nausea and vomiting did not take his insulin and his blood sugars have increased.? EMS reported that his blood sugar was greater than 500 and the patient reports that he feels somewhat short of breath and feels similar to whenever he has DKA in the past. Review of Systems Review of Systems: All systems reviewed & are unremarkable except as noted in HPI and below PMFSH Past Medical History Medical History Abdominal distension Abdominal pain Acute renal insufficiency Anemia Hemoglobin 11.7, hematocrit 37.1, iron 47, vitamin B12 561, folic acid 19.0 on 03/30/2021. Hemoglobin 12.7, vitamin B12 777, folic acid 12.6 on 07/02/2022. Bipolar disorder Dehydration Depression Dislocation of C1/C2 cervical vertebrae DKA (diabetic ketoacidoses) Elevated lactic acid level Encounter for prostate cancer screening PSA 0.24 on 07/02/2022. Fracture, mandible Gastro-esophageal reflux disease without esophagitis Hyperkalemia Hypermagnesemia Hypogonadism male total testosterone 144 with free testosterone 18.8 on 03/30/2021. Testosterone 66 with free testosterone 7.5 on 07/02/2022. Hypotension Ileus Leukocytosis Male erectile dysfunction, unspecified Narcotic abuse, continuous Sepsis Severe sepsis Type 1 diabetes mellitus Umbilical hernia Surgical History Surgical History History of bilateral carpal tunnel release History of decompression of ulnar nerve History of lumbar spinal fusion History of rotator cuff surgery Hx of fusion of cervical spine Family History Family History Grandparent Diabetes mellitus, Onset Age: 80 Mother Patient's mother is in good health Family history of arthritis Family history of Alzheimer's disease Father Cerebrovascular accident, Onset Age: 72 Hypertension Sibling Hypertension Gallbladder cancer Social History Social History Smoking packs per day: 1 Smoking cigarettes per day: 20.0 Years smoked: 36 Smoking pack-years: 36.00 Smoking status: Current every day smoker Alcohol intake: never Substance use: former Substance use type: opiates Other substance usage details: Snorts fentanyl Last use: 2 days ago Lack of Transportation: No Lack of Food: Never True Current Housing: I Have Housing Concerned About Future Housing: Decline to Answer Difficulty Paying Gas/Electric Bills: Decline to Answer Difficulty Paying for Meds: Decline to Answer Currently Unemployed: Decline to Answer Education: Decline to Answer Difficulty w/ Childcare or Family Care: Decline to Answer Living arrangements: with family Additional living arrangements comments: His . 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 Gender identity (if verbalized by the patient): Male Spiritual care concerns: No Meds Home Medications and Allergies Home Medications Medication Instructions Recorded Confirmed Type multivitamin 1 tablet PO DAILY 02/01/21 07/02/23 History insulin glargine-yfgn 100 unit/mL 22 unit subcut QPM 05/27/23 07/02/23 History (3 mL) subcutaneous pen (Semglee (insulin glargine-yfgn) Pen) insulin lispro 100 unit/mL 8 unit (0.08 mL) subcut TID 90 05/27/23 07/02/23 Rx subcutaneous pen (Humalog days #21.6 mL (U-100) Insulin) buprenorphine 8 mg-naloxone 2 mg film 06/24/23 07/02/23 History sublingual film hydroxyzine pamoate 50 mg capsule 50 mg PO TID PRN Anxiety 06/24/23 07/02/23 History ascorbic acid (vitamin C)
[2023-07-06] MEDS: KCL 20 MEQ/D5/0.45% SOD CHL 1,000 ML 150 ML IV CONT (12:24)
[2023-07-06 15:38] LABS: Anion Gap 8 mmol/L (8-16); Blood Urea Nitrogen 36 mg/dL (9-20); Calcium 8.7 mg/dL (8.4-10.2); Carbon Dioxide 27 mmol/L (22-30); Chloride 105 mmol/L (98-107); Estimated CRCL calculation 73 ml/min; Estimated Glomerular Filt Rate > 60; Glucose 203 mg/dL (65-110); Potassium 4.3 mmol/L (3.4-5.0); Sodium 140 mmol/L (137-145)
[2023-07-06] MEDS: INSULIN GLARGINE (*BKC) 100 UNITS/ML 15 UNITS SUB-Q (17:15)
[2023-07-06 17:36] LABS: Appearance Urine Clear (Clear); Bilirubin Urine Negative (Negative); Blood Urine Negative (Negative); Color Urine Yellow (Yellow); Glucose Urine UA 3+ mg/dL (Negative); Ketones Urine 2+ mg/dL (Negative); Leukocyte Esterase Ur Negative LEU/UL (Negative); Nitrate Urine Negative (Negative); Protein Urine Negative (Negative); Specific Grav Ur 1.025 (1.001-1.035); Urobilinogen Urine 0.2 mg/dL (<2.0)
[2023-07-06 17:37] LABS: Add Urine Microscopic? NO
[2023-07-06 19:04] LABS: Glucose Point of Care 414 mg/dl (65-105)
[2023-07-06 19:04] LABS: Glucose Point of Care 163 mg/dl (65-105)
[2023-07-06 19:04] LABS: Glucose Point of Care 273 mg/dl (65-105)
[2023-07-06 19:04] LABS: Glucose Point of Care 207 mg/dl (65-105)
[2023-07-06 19:04] LABS: Glucose Point of Care 194 mg/dl (65-105)
[2023-07-06 19:04] LABS: Glucose Point of Care 214 mg/dl (65-105)
[2023-07-06 19:04] LABS: Glucose Point of Care 285 mg/dl (65-105)
[2023-07-06 19:04] LABS: Glucose Point of Care 224 mg/dl (65-105)
[2023-07-06 19:04] LABS: Glucose Point of Care 179 mg/dl (65-105)
[2023-07-06 19:04] LABS: Glucose Point of Care 405 mg/dl (65-105)
[2023-07-06 19:04] LABS: Glucose Point of Care 237 mg/dl (65-105)
--- NOTE | 2023-07-06 19:25 | PC.NURSE ---
DKA orders and fingersticks discontinued, AC/HS fingersticks ordered. Regino LECHUGA spoke with Dr richardson for orders to d/c insulin drip and start high dose sliding scale with meals.
[2023-07-06 22:15] LABS: Glucose Point of Care 291 mg/dl (65-105)
--- NOTE | 2023-07-06 22:16 | PC.NURSE ---
07/06 2200 blood sugar 291; no insulin given.
[2023-07-07] VITALS: BP 130/60; PULSE 107; PULSE 97; RESP 23; TEMP 37.7; O2SAT 98
[2023-07-07] MEDS: cloNIDine HCL 0.1 MG TABLET PO (00:59)
[2023-07-07] MEDS: AMITRIPTYLINE HCL 25 MG TABLET PO (00:59)
[2023-07-07] MEDS: QUEtiapine FUMARATE 100 MG TABLET 200 MG PO (00:59)
[2023-07-07 01:00] VITALS: BP 126/66
[2023-07-07 02:00] VITALS: BP 100/51; PULSE 102; RESP 12; O2SAT 97
[2023-07-07 04:00] VITALS: BP 104/51; PULSE 102; PULSE 103; RESP 15; TEMP 37; O2SAT 97
[2023-07-07 04:23] LABS: Basophils Absolute Auto 0.1 K/mm3 (0.0-0.1); Basophils Percent Auto 0.2 % (0.2-1.2); Hematocrit 32.2 % (42.0-52.0); Hemoglobin 10.6 g/dL (14.0-18.0); Immature Granulocyte Percent A 0.5 % (0-0.5); Lymphocytes Absolute Auto 2.26 K/mm3 (0.9-3.2); Lymphocytes Percent Auto 10.5 % (18.3-44.2); Mean Corpuscular HGB Conc 32.9 g/dl (32-36); Mean Corpuscular Hemoglobin 30.5 pg (26-34); Mean Corpuscular Volume 92.8 fl (80-100); Mean Platelet Volume 7.8 fl (7.4-10.4); Monocytes Absolute Auto 0.7 K/mm3 (0.1-0.6); Monocytes Percent Auto 3.3 % (2.6-8.5); Neutrophils Absolute Auto 18.5 K/mm3 (1.3-6.7); Neutrophils Percent Auto 85.5 % (45.5-73.1); Platelet Count Result 320 k/mm3 (150-375); Red Blood Count 3.47 M/mm3 (4.6-6.20); Red Cell Distribution Width 13.6 % (11.5-14.5); White Blood Count 21.6 K/mm3 (4.5-10.0)
--- NOTE | 2023-07-07 04:39 | PC.NURSE ---
Patient agitated by morning lab draw and assessment. States he had just fallen asleep, despite being asleep with nurse checks. States I'm going home today. I didn't get any rest when I was here lat week either . This nurse continued assessment and pt was cooperative. Will continue to monitor.
[2023-07-07 04:48] LABS: Alanine Aminotransferase 24 U/L (6-50); Albumin Level 2.8 g/dL (3.5-5.1); Alkaline Phosphatase 90 U/L (38-126); Anion Gap 1 mmol/L (8-16); Aspartate Amino Transferase 28 U/L (17-59); Bilirubin,Total 0.8 mg/dL (0.2-1.3); Blood Urea Nitrogen 22 mg/dL (9-20); Carbon Dioxide 30 mmol/L (22-30); Chloride 103 mmol/L (98-107); Estimated CRCL calculation 122 ml/min; Estimated Glomerular Filt Rate > 60; Glucose 175 mg/dL (65-110); Potassium 3.5 mmol/L (3.4-5.0); Sodium 134 mmol/L (137-145)
[2023-07-07 06:26] VITALS: BP 109/64; PULSE 95; PULSE 96; RESP 16; O2SAT 97
--- NOTE | 2023-07-07 07:49 | WPDINTPN ---
Progress Note: A&P Assessment and Plan (1) DKA (diabetic ketoacidosis): Qualifiers: Diabetes mellitus complication detail: without coma Diabetes mellitus type: type 1 Qualified Code(s): E10.10 - Type 1 diabetes mellitus with ketoacidosis without coma Code(s): E11.10 - Type 2 diabetes mellitus with ketoacidosis without coma Status: Acute Assessment and Plan: 07/06/2023: Patient presented with nausea and vomiting along with hyperglycemia. Patient was found to be in DKA in the ER with elevated blood sugars, anion gap, beta hydroxybutyrate. - Patient received adequate IV fluids in the ER and ICU, was on insulin infusion per DKA protocol -transition to long-acting insulin and sliding scale insulin yesterday evening -hemoglobin A1c 9.1 this admission -continue Lantus, sliding scale insulin -repeat lactic acid have improved -chest x-ray and UA are negative, no signs of infections at this time, no antibiotics recommended will continue to monitor (2) Nausea and vomiting: Code(s): R11.2 - Nausea with vomiting, unspecified Status: Acute Assessment and Plan: Resolved (3) Tobacco dependence: Code(s): F17.200 - Nicotine dependence, unspecified, uncomplicated Status: Chronic Assessment and Plan: Patient smokes 1 packet per day for many years, -patient counseled on cessation of smoking (4) Fentanyl dependence: Code(s): F11.20 - Opioid dependence, uncomplicated Status: Acute Assessment and Plan: Patient states he snorts fentanyl daily (5) Essential (primary) hypertension: Code(s): I10 - Essential (primary) hypertension Status: Acute Assessment and Plan: Labetalol p.r.n. -DC clonidine Plan DVT prophylaxis: Lovenox Stress ulcer prophylaxis: Protonix due to history of GERD Nutrition: Diabetic diet Code Status: Full code Critical Care Time Spent: 32 minutes Patient may transfer out of the ICU today if okay with hospitalist Due to a high probability of clinically significant, life threatening deterioration, the patient required my highest level of preparedness to intervene emergently and I personally spent this critical care time directly and personally managing the patient. This critical care time included obtaining a history; examining the patient; pulse oximetry; ordering and review of studies; arranging urgent treatment with development of a management plan; evaluation of patient's response to treatment; frequent reassessment; and discussions with other providers. It was exclusive of separately billable procedures and treating other patients and teaching time. Please see Assessment and Plan section and the rest of the note for further information on patient assessment and treatment This dictation may have been done utilizing a voice recognition system. Attempts have been made to correct errors. However, there may be uncorrected grammatical, spelling, and recognitions errors present. Subjective Date/time seen: 07/07/23 07:49 Interval history: Reason for consult: Diabetic ketoacidosis, tachycardia, elevated blood sugars, lactic acidosis 07/07/2023: Patient seen and examined the ICU, is awake, alert, and denies any nausea, vomiting, shortness of breath, chest pain, abdominal pain. Complains of chronic back pain and lower extremity pain. Patient has been transition to long-acting insulin and sliding scale insulin, adequate urine output, afebrile, hemodynamically stable Review of Systems Review of Systems: All systems reviewed & are unremarkable except as noted in HPI and below Exam Narrative: General: Patient is awake, alert, oriented in no acute distress HEENT:? Pupils are equal and reactive, sclera is clear, moist oral mucosa Neck:? Supple Respiratory:? Clear to auscultation bilaterally, adequate air entry, no wheezing Cardiac:? Regular rate and rhythm, normal S1-S2 Abdomen:? Soft, nontender, nondistended, normal
[2023-07-07 08:00] VITALS: BP 128/76; PULSE 107; PULSE 98; RESP 16; TEMP 36.9; O2SAT 99
[2023-07-07] MEDS: ENOXAPARIN 40 MG/0.4 ML SYRINGE SUB-Q (08:00)
[2023-07-07] MEDS: ASCORBIC ACID 500 MG TABLET PO (08:00)
[2023-07-07] MEDS: PANTOPRAZOLE 40 MG TABLET PO (08:00)
[2023-07-07] MEDS: FLUoxetine HCL 20 MG CAPSULE PO (08:00)
[2023-07-07] MEDS: INSULIN ASPART (*BKC) 100 UNITS/ML 8 UNITS SUB-Q (08:02)
[2023-07-07] MEDS: INSULIN GLARGINE (*BKC) 100 UNITS/ML SUB-Q (08:02)
[2023-07-07 08:15] LABS: Glucose Point of Care 100 mg/dl (65-105)
--- NOTE | 2023-07-07 08:57 | PC.NURSE ---
Updated sister, Hilda, on patient condition.
[2023-07-07 10:45] VITALS: BMI 17.6
--- NOTE | 2023-07-07 11:14 | PM.DS ---
DS: Admitting Diagnosis Discharge Date July 07, 2023 Admitting Diagnosis DKA DS: Discharge Diagnosis Discharge Diagnosis (1) DKA (diabetic ketoacidosis): Qualifiers: Diabetes mellitus complication detail: without coma Diabetes mellitus type: type 1 Qualified Code(s): E10.10 - Type 1 diabetes mellitus with ketoacidosis without coma Code(s): E11.10 - Type 2 diabetes mellitus with ketoacidosis without coma Status: Acute Assessment and Plan: 07/06/2023: Patient presented with nausea and vomiting along with hyperglycemia. Patient was found to be in DKA in the ER with elevated blood sugars, anion gap, beta hydroxybutyrate. - Patient received adequate IV fluids in the ER and ICU, was on insulin infusion per DKA protocol -transition to long-acting insulin and sliding scale insulin yesterday evening -hemoglobin A1c 9.1 this admission -continue Lantus, sliding scale insulin -repeat lactic acid have improved -chest x-ray and UA are negative, no signs of infections at this time, no antibiotics recommended will continue to monitor (2) Nausea and vomiting: Code(s): R11.2 - Nausea with vomiting, unspecified Status: Acute Assessment and Plan: Resolved (3) Tobacco dependence: Code(s): F17.200 - Nicotine dependence, unspecified, uncomplicated Status: Chronic Assessment and Plan: Patient smokes 1 packet per day for many years, -patient counseled on cessation of smoking (4) Fentanyl dependence: Code(s): F11.20 - Opioid dependence, uncomplicated Status: Acute Assessment and Plan: Patient states he snorts fentanyl daily (5) Essential (primary) hypertension: Code(s): I10 - Essential (primary) hypertension Status: Acute Assessment and Plan: Labetalol p.r.n. -DC clonidine Plan DVT prophylaxis: Lovenox Stress ulcer prophylaxis: Protonix due to history of GERD Nutrition: Diabetic diet Code Status: Full code Critical Care Time Spent: 32 minutes Patient may transfer out of the ICU today if okay with hospitalist Due to a high probability of clinically significant, life threatening deterioration, the patient required my highest level of preparedness to intervene emergently and I personally spent this critical care time directly and personally managing the patient. This critical care time included obtaining a history; examining the patient; pulse oximetry; ordering and review of studies; arranging urgent treatment with development of a management plan; evaluation of patient's response to treatment; frequent reassessment; and discussions with other providers. It was exclusive of separately billable procedures and treating other patients and teaching time. Please see Assessment and Plan section and the rest of the note for further information on patient assessment and treatment This dictation may have been done utilizing a voice recognition system. Attempts have been made to correct errors. However, there may be uncorrected grammatical, spelling, and recognitions errors present. DS: Summary Hospital Course Hospital Course: Admitted for DKA - treated in ICU, now resolved. Continue home medications. BS now controlled. Feeling much better, ok for dc. Time Spent with Patient Time attestation: Total time spent providing and/or coordinating discharge services: Exam Narrative: General: Patient is awake, alert, oriented in no acute distress HEENT:? Pupils are equal and reactive, sclera is clear, moist oral mucosa Neck:? Supple Respiratory:? Clear to auscultation bilaterally, adequate air entry, no wheezing Cardiac:? Regular rate and rhythm, normal S1-S2 Abdomen:? Soft, nontender, nondistended, normal bowel sounds Extremities:? No clubbing, cyanosis or edema, warm Neuro:? Patient is awake, alert, oriented, answers to questions appropriately, follows simple commands in all extremities Skin:? Warm and dry Psych:? Normal affect and mentat
[2023-07-07 11:46] LABS: Glucose Point of Care 75 mg/dl (65-105)
== END 2023-07-07 11:55 | disposition home or self-care (01) ==
LOC: ANHED 06:56 → ANHICU 12:50
PROVIDERS: Internal Medicine; Admitting Provider Chiropractor; Emergency Provider Emergency Medicine; PCP Family Medicine; Visit Provider Chiropractor
DX: E10.10 Type 1 diabetes mellitus with ketoacidosis without coma (principal); R94.31 Abnormal electrocardiogram [ECG] [EKG]; F41.9 Anxiety disorder, unspecified; F31.9 Bipolar disorder, unspecified; K21.9 Gastro-esophageal reflux disease without esophagitis; I10 Essential (primary) hypertension; E29.1 Testicular hypofunction; F17.210 Nicotine dependence, cigarettes, uncomplicated; F11.20 Opioid dependence, uncomplicated; Z79.4 Long term (current) use of insulin; Z79.899 Other long term (current) drug therapy; Z83.3 Family history of diabetes mellitus
CPT/HCPCS: 36415; 36600; 71045; 80048; 80053; 81003; 82010; 82375; 82805; 82948; 83036; 83050; 83605; 83690; 83735; 84100; 84145; 84484; 85025; 85610; 85730; 87040; 87086; 87636; 93005; 96361; 96365; 96366; 96368; 96372; 96374; 96375; 99285; A9270; C9113; G0378; J0780; J1650; J1815; J2405; J3480; J7030

== ENCOUNTER 2023-08-24 03:57 | Emergency (ER) | payer MEDICARE, SELFPAY ==
[2023-08-24 04:05] VITALS: BP 153/74; PULSE 115; RESP 16; TEMP 36.4; O2SAT 99
[2023-08-24 05:30] VITALS: BP 122/68; PULSE 94; RESP 14; O2SAT 97
--- NOTE | 2023-08-24 06:51 | ED.GENADULT ---
HPI - General Adult General Chief complaint: Wound/Laceration Stated complaint: Laceration History of Present Illness HPI narrative: This is a 52-year-old male presenting with a bleeding wound on his leg. Patient states he scratched his leg and has been unable to control the bleeding. No use of blood thinners. Related Data Home Medications Medication Instructions Recorded Confirmed multivitamin 1 tablet PO DAILY 02/01/21 08/21/23 insulin glargine-yfgn 100 unit/mL 22 unit subcut QPM 05/27/23 08/21/23 (3 mL) subcutaneous pen (Semglee (insulin glargine-yfgn) Pen) testosterone cypionate 200 mg/mL 200 mg IM .[id number] 07/02/23 08/21/23 intramuscular oil (Depo-Testosterone) Allergies Allergy/AdvReac Type Severity Reaction Status Date / Time No Known Allergies Allergy Verified 07/02/23 15:11 [facility] Past Medical History Medical History Abdominal distension Abdominal pain Acute renal insufficiency Anemia Hemoglobin 11.7, hematocrit 37.1, iron 47, vitamin B12 561, folic acid 19.0 on 03/30/2021. Hemoglobin 12.7, vitamin B12 777, folic acid 12.6 on 07/02/2022. Bipolar disorder Body mass index (BMI) less than 19 Dehydration Depression Dislocation of C1/C2 cervical vertebrae DKA (diabetic ketoacidoses) Elevated lactic acid level Encounter for prostate cancer screening PSA 0.24 on 07/02/2022. Fracture, mandible Gastro-esophageal reflux disease without esophagitis Hyperkalemia Hypermagnesemia Hypogonadism male total testosterone 144 with free testosterone 18.8 on 03/30/2021. Testosterone 66 with free testosterone 7.5 on 07/02/2022. Hypotension Ileus Leukocytosis Male erectile dysfunction, unspecified Narcotic abuse, continuous Sepsis Severe sepsis Type 1 diabetes mellitus Umbilical hernia Surgical History Surgical History History of bilateral carpal tunnel release History of decompression of ulnar nerve History of lumbar spinal fusion History of rotator cuff surgery Hx of fusion of cervical spine Family History Family History Grandparent Diabetes mellitus, Onset Age: 80 Mother Patient's mother is in good health Family history of arthritis Family history of Alzheimer's disease Father Cerebrovascular accident, Onset Age: 72 Hypertension Sibling Hypertension Gallbladder cancer Social History Social History Smoking packs per day: 1 Smoking cigarettes per day: 20.0 Years smoked: 36 Smoking pack-years: 36.00 Smoking status: Current every day smoker Tobacco type: cigarettes Alcohol intake: never Substance use: current Substance use type: opiates Other substance usage details: Snorts fentanyl Last use: 08/21/23 Lack of Transportation: No Lack of Food: Never True Current Housing: I Have Housing Concerned About Future Housing: Decline to Answer Difficulty Paying Gas/Electric Bills: Decline to Answer Difficulty Paying for Meds: Decline to Answer Currently Unemployed: Decline to Answer Education: Decline to Answer Difficulty w/ Childcare or Family Care: Decline to Answer Living arrangements: with family Additional living arrangements comments: His . Occupation/Education: retired Additional occupation/education comments: [employer], 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 Gender identity (if verbalized by the patient): Male Spiritual care concerns: No Exam Narrative: APPEARANCE: No apparent distress. Head: atraumatic. EYES: EOMI, NOSE: Atraumatic NECK: Trachea midline RESPIRATORY: No increased rate of breathing CARDIOVASCULAR: RRR, ABDOMINAL: Non-distended MUSCULOSKELETAl: No obvious deformities NEURO: Alert. Moving 4/4 extremities SKIN:: Patient has a small bleeding scratch on his left lower extremity. nonpulsatile
== END 2023-08-24 07:00 | disposition home or self-care (01) ==
LOC: ANHED 07:06
PROVIDERS: Emergency Provider Emergency Medicine; PCP Family Medicine
DX: S81.802A Unspecified open wound, left lower leg, initial encounter (principal); E10.9 Type 1 diabetes mellitus without complications; F17.210 Nicotine dependence, cigarettes, uncomplicated; Z79.4 Long term (current) use of insulin; W50.4XXA Accidental scratch by another person, initial encounter
CPT/HCPCS: 12001; 99283

== ENCOUNTER 2024-09-30 14:41 | Emergency (ER) | payer MEDICARE, SELFPAY ==
[2024-09-30 14:51] VITALS: BP 127/100; PULSE 97; RESP 18; TEMP 37; O2SAT 97
--- NOTE | 2024-09-30 14:58 | ED_ITS ---
HPI - Skin/Abscess/Foreign Bdy General Chief complaint: Extremity Injury, Upper Stated complaint: RT Finger Pain Time Seen by Provider: 09/30/24 14:58 Source: patient Mode of arrival: ambulatory Limitations: no limitations History of Present Illness HPI narrative: 53 yo M presents with infection to R index finger x 2 days with swelling. hx of DM. Has been working on bathroom at his MOm's house. Reached under sink and felt like something bit me . concerned for spider bite. Afebrile. ROM and distal NV intact. All systems reviewed and negative except as noted above. Related Data Home Medications ?Medication ?Instructions ?Recorded ?Confirmed ?Last Taken ?Type multivitamin 1 tablet PO DAILY 02/01/21 03/31/24 Unknown History insulin glargine-yfgn 100 unit/mL 22 unit subcut QPM 05/27/23 03/31/24 Unknown History (3 mL) subcutaneous pen (Semglee (insulin glargine-yfgn) Pen) magnesium oxide 400 mg PO BID PRN 03/31/24 03/31/24 Unknown History Allergies Allergy/AdvReac Type Severity Reaction Status Date / Time No Known Allergies Allergy Verified 03/31/24 13:24 Review of Systems Review of Systems: CONSTITUTIONAL: Denies fever, chills, or sweats. EYES: Denies visual changes, redness, or discharge. ENT: Denies rhinorrhea, congestion, sore throat, or otalgia. CARDIOVASCULAR: Denies chest pain, palpitations, or edema. RESPIRATORY: Denies cough or dyspnea. GASTROINTESTINAL: Denies abdominal pain, nausea, vomiting, or diarrhea. GENITOURINARY: Denies dysuria or hematuria. SKIN: Denies rash or itching. reports redness, swelling, pain to right hand. MUSCULOSKELETAL: Denies back pain, joint pain, or myalgia. NEUROLOGIC: Denies headache, numbness, or weakness. PSYCHIATRIC: Denies anxiety or depression. All other systems reviewed are negative, except as documented in HPI. [facility] Past Medical History Medical History (Updated 09/30/24 @ 15:01 by Maryuri Ingram NP) Dupuytren's contracture of both hands (~2023) early Dupuytren's contracture 4th and 5th digits both hands Trigger finger, acquired (~2023) trigger finger 4th and 5th digits both hands Acute non-recurrent maxillary sinusitis Muscle spasm Laceration of left thumb (02/25/24) Open wound Arthritis/arthropathy of multiple joints Sedimentation rate 4, rheumatoid factor less than 10, CCP negative, TARYN negative on 04/02/2024. Body mass index (BMI) of 19 or less in adult Hyperhidrosis of feet Chronic pain of right lower extremity Body mass index (BMI) less than 19 Nausea and vomiting Diabetic ketoacidosis Acute hyperkalemia DKA (diabetic ketoacidosis) Encounter for prostate cancer screening PSA 0.24 on 07/02/2022. PSA 0.4 on 04/02/2024. Hypotension Dislocation of C1/C2 cervical vertebrae Depression Fracture, mandible Narcotic abuse, continuous Anemia Hemoglobin 11.7, hematocrit 37.1, iron 47, vitamin B12 561, folic acid 19.0 on 03/30/2021. Hemoglobin 12.7, vitamin B12 777, folic acid 12.6 on 07/02/2022. Hemoglobin 12.1, iron 76 with 23% saturation and ferritin 35 with vitamin B12 at 395 and folic acid 14.0 on 04/02/2024. Male erectile dysfunction, unspecified Hypogonadism male total testosterone 144 with free testosterone 18.8 on 03/30/2021. Testosterone 66 with free testosterone 7.5 on 07/02/2022. Testosterone 287 with free testosterone 1.9 on 04/02/2024. Substance abuse Ileus Severe sepsis Elevated lactic acid level Abdominal distension Leukocytosis Abdominal pain Sepsis Hypermagnesemia Hyperkalemia Acute renal insufficiency Dehydration DKA (diabetic ketoacidoses) Umbilical hernia Bipolar disorder Type 1 diabetes mellitus Gastro-esophageal reflux disease without esophagitis Surgical History Surgical History Hx of fusion of cervical spine History of lumbar spinal fusion History of decompression of ulnar nerve History of rotator cuff surgery History of bilateral carpal tunnel release Family History Family History Grandparent Diabetes mellitus, Onset Age: 80 Mother Patient's mother is in good health Family history of arthritis Family history of Alzheimer's disease Father Cerebrovascular accident, Onset Age: 72 Hypertension Sibling Hypertension Gallbladder cancer Social History Social History Smoking packs per day: 1 Smoking cigarettes per day: 20.0 Years smoked: 36 Smoking pack-years: 36.00 Smoking status: Current every day smoker Tobacco type: cigarettes Alcohol intake: never Substance use: former Substance use type: opiates Other substance usage details: Snorts fentanyl Last use: around 11/26/23 Lack of Transportation: No Lack of Food: Never True Current Housing: I Have Housing Concerned About Future Housing: Decline to Answer Difficulty Paying Gas/Electric Bills: Decline to Answer Difficulty Paying for Meds: Decline to Answer Currently Unemployed: Decline to Answer Education: Decline to Answer Difficulty w/ Childcare or Family Care: Decline to Answer Living arrangements: with family Additional living arrangements comments: His . 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 There is no relevant family history pertinent to the presenting complaint. Exam Narrative: GENERAL: This is a well-nourished, well-developed patient, in no apparent distress. HEAD: normocephalic, atraumatic. EYES: PERRL. Sclera clear/white. Vision is grossly intact. EARS: External ears normal NOSE: External nose normal NECK: Neck supple, non-tender without lymphadenopathy, masses or thyromegaly. CARDIOVASCULAR: Regular rate and rhythm without murmurs, gallops, or rubs. RESPIRATORY: Clear to auscultation. Breath sounds equal bilaterally. No wheezes, rales, or rhonchi. SKIN: warm, Dry, intact with no suspicious lesions or rash, good texture and turgor. erythema to proximal aspect R index finger with scab. erythema extends into dorsal aspect R hand up to mid forearm with mild swelling. warm to touch, tender on palpation. no fluctuance concerning for abscess. NEURO: awake, alert, and oriented to person, place and time. There were no obvious focal neurologic abnormalities. EXTREMITIES: No joint tenderness, effusion, or edema noted. Course Course Level of Care: Express Care Visit Vital Signs Vital signs: Vital Signs Temperature 37.0 C 09/30/24 14:51 Pulse Rate 97 09/30/24 14:51 Respiratory Rate 18 09/30/24 14:51 Blood Pressure 127/100 H 09/30/24 14:51 Pulse Oximetry 97 01/16/25 14:51 Oxygen Delivery Room Air 09/30/24 14:51 Temperature 37.0 C 09/30/24 14:51 Pulse Rate 97 09/30/24 14:51 Respiratory Rate 18 09/30/24 14:51 Blood Pressure 127/100 H 09/30/24 14:51 Pulse Oximetry 97 09/30/24 14:51 Oxygen Delivery Room Air 09/30/24 14:51 Reviewed MDM - Skin/Abscess/Foreign Bdy MDM Narrative Medical decision making narrative: will treat patient with clindamycin and doxycycline for cellulitis to right upper extremity. No fluctuance concerning for abscess. Distal neurovascularly intact, range of motion normal. No necrosis noted. Recommend follow-up with primary care physician. Will go to the ER for any worsening of infection. Patient is aware of diagnosis, understands and agrees to treatment plan. Anticipatory guidance given. Patient agrees to follow-up as directed and is aware of reasons to seek care at the emergency department. Portions of this record may have been created with voice recognition software Discharge Plan Discharge Clinical Impression: Cellulitis of right hand Patient Disposition: Home, Self-Care Condition: Stable Instructions: Antibiotic Form Additional Instructions: Take antibiotics as prescribed until gone. Take tyelnol or ibuprofen every 6 to 8 hours as needed for pain. Elevate when at rest. Keep affected area clean and dry. Wash with soap and water. Go to the ER for any worsening of symptoms. Patient Language: [place]an Prescriptions: New doxycycline hyclate 100 mg capsule 100 mg PO BID 7 Days Qty: 14 0RF clindamycin HCl 300 mg capsule 300 mg PO QID 10 Days Qty: 40 0RF No Action testosterone cypionate [Depo-Testosterone] 200 mg/mL oil 200 mg IM .r2cybnr Qty: 6 1RF Rx Instructions: as a single dose quetiapine 200 mg tablet 100 mg PO QHS Qty: 90 3RF gabapentin 100 mg capsule 100 mg PO TID Qty: 90 5RF multivitamin Tablet 1 tablet PO DAILY insulin glargine-yfgn [Semglee(insulin glarg-yfgn)Pen] 100 unit/mL (3 mL) ins ulin pen 22 unit subcut QPM insulin lispro [Humalog KwikPen Insulin] 100 unit/mL insulin pen 8 unit SUB-Q TID 90 Days Qty: 21.6 3RF Rx Instructions: 8 units TID with meals and SS 1 unit for every 50 over 150 magnesium oxide 400 mg magnesium tablet 400 mg PO BID PRN (DME) OneTouch Verio test strips Strip See Rx Instructions .Route Qty: 100 3RF Rx Instructions: checking blood sugar 3 times a day (DME) pen needle, diabetic [BD Ultra-Fine Cristina Pen Needle] 32 gauge x 5/32 needle See Rx Instructions .Route Qty: 360 3RF Rx Instructions: As directed lisinopril 40 mg tablet 40 mg PO DAILY Qty: 90 3RF ondansetron 4 mg tablet,disintegrating 4 mg PO QID PRN (Reason: nausea and vomiting) Qty: 20 0RF tizanidine 4 mg tablet 4 mg PO BID PRN (Reason: muscle spasticity) Qty: 60 5RF meloxicam 15 mg tablet 15 mg PO DAILY PRN (Reason: pain) Qty: 90 3RF hydroxyzine pamoate 50 mg capsule 50 mg PO TID PRN (Reason: Anxiety) Qty: 270 3RF omeprazole 20 mg capsule,delayed release(DR/EC) 20 mg PO BID Qty: 180 3RF ascorbic acid (vitamin C) 500 mg tablet 500 mg PO DAILY Qty: 90 3RF fluoxetine 40 mg capsule 40 mg PO DAILY Qty: 90 3RF Follow-up/Referrals: Parmjit Mcdermott MD [Primary Care Provider] - Time of Disposition: 15:03
[2024-09-30] MEDS: cefTRIAXone 1 GM, LIDOCAINE 1% LOCAL INJ 2.1 ML IM (15:09)
== END 2024-09-30 15:30 | disposition home or self-care (01) ==
PROVIDERS: Emergency Provider Nurse Practitioner Family; PCP Family Medicine
DX: L03.011 Cellulitis of right finger (principal); L03.113 Cellulitis of right upper limb; E10.8 Type 1 diabetes mellitus with unspecified complications; M15.9 Polyosteoarthritis, unspecified; K21.9 Gastro-esophageal reflux disease without esophagitis; F17.210 Nicotine dependence, cigarettes, uncomplicated
CPT/HCPCS: 96372; 99213; G0463; J0696; J2003

== ENCOUNTER 2024-11-19 13:04 | Outpatient (CLI) | payer MEDICARE, SELFPAY ==
--- NOTE | ~2024-11-19 | XR_ITS ---
VIEWS LUMBAR SPINE Ordering provider: Analilia Valentin NP History: . M54.40 - Lumbago with sciatica on the left side . Comparison: None. FINDINGS: VERTEBRAL BODIES: Sclerotic changes in the superior endplate of L2 which may indicate compression fra cture. Clinical correlation advised. Postoperative changes at the level of L4-L5. No visible subluxa tion. DISK SPACES: Narrowing of the disc L1-L2. SOFT TISSUES: Normal. IMPRESSION: Sclerotic area in the superior endplate of L2 which may indicate compression fracture. MRI evaluation advised. Postoperative changes. Degenerative disc disease at the level of L1-L2. Reviewed, dictated and finalized at location A. CRAFT ARTIST IMPRESSION: Sclerotic area in the superior endplate of L2 which may indicate compression fr acture. MRI evaluation advised. Postoperative changes. Degenerative disc disease at the level of L1-L2.
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
--- OUTSIDE RECORDS SUMMARY | 2024-11-19 13:27 | XMS_ITS ---
[facility] Organization [facility] Address [address] [place] [address] Care Team Providers Care Gang Bore Operator Name Role Phone Rose Marie Melendrez Primary Care Provider [phone] Allergies No Known Allergies Reason For Referral Reason Substance Use - want s residential treatment Diagnosis 1 Opioid use disorder (F11.99) Diagnosis 2 Methamphetamine use disorder, 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) Referral Organization [facility] Referring Provider First Name Rose Marie Referring Provider Last Name Parvin Referring Provider Speciality Psychiatry Referred Provider Specialty Behavioral [facility] Clinical Notes Marium Diaz 07/26/2024 02:54:16 PM >LENA called client to discuss options for treatment ([facility] groups, detox, inpatient, IOP etc). VM left for client to return the message.Emily Kristina L 08/05/2024 08:37:11 AM >LENA called client to discuss options for treatment, HN left a message for client to return the call. LENA left message on VM.Emily Kristina L 08/11/2024 01:10:16 PM >LENA left client another message after reaching out to the Detox and residential unit. Unable to reach client. LENA left message with phone number to call back. Referral letter sent to client and provider (Cindi Melendrez) contacted to let her know the client has not been able to be reached about services since 07-26-24. Referral Priority Routine REASON FOR VISIT Transfer from [facility], last seen 3/13/24 Medications Medication SIG (Take, Route, Frequency, Duration) Notes Start Date End Date Status hydrOXYzine Pamoate 50 MG 1 Capsule Orally 4 times daily Active FLUoxetine HCl 40 MG 1 capsule Orally On ce a day Active SEROquel 200 MG 1 tablet at bedtime Orally Once a day Not-Taking QUEtiapine Fumarate 200 MG 1 tablet at bedtime Orally Once a day for 30 days 07/20/2024 Active Basaglar KwikPen 100 UNIT/ML 14-16 Units Subcutaneous at night Active tiZANidine HCl 4 MG 1 tablet at bedtime as needed Orally Once a day Not-Tu ing HumaLOG KwikPen 100 UNIT/ML per sliding scale Subcutaneous three times daily Active Lisinopril 40 MG 1 tablet Orally Once a day for 30 days 07/24/2021 Not-Taking Meloxicam 15 MG 1 tablet Orally Once a day Active Lantus SoloStar 100 UNIT/ML as directed Subcutaneous Act cas Accu-Chek Active Care Kit Active Aspirin 81 81 MG 1 tablet Orally Once a day Active Omeprazole 20 MG 1 capsule 30 minutes before morning meal Orally twice a day Active Gabapentin 100 MG 1 capsule Orally thr ee times a day for pain 07/20/2024 Active Social History Tobacco Use: Social History Observation Description Date Details (start date - stop date) Current Smoker 07/22/1987 - NA Sex Assigned At : Social History Observation Description Sex Assigned At Male Tobacco Control (Standard) Question Answer Notes Tobacco [...] ago due to fentanyl use. Rehab at [facility] in past couple of years - [...] - - - - SOCIAL HISTORY location- [place] Current [place] location- [place] Who lives at home? Lives with sister Siblings? Children? Siblings: 2 sisters and 1 brother children: 1 20-year-old son Relationships? 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 [employer] Occupation/Job history- Currently on disability Hobbies/Interests- Fishing, collect [place], baseball memorabilia, construction Social Activities: Gardening, takes drives, take walks, work on motorcycle Spiritual Affiliation: I do believe that there is someone out there but I feel like we are living in hell Probation/Legal trouble/?: 3.5 years ago I got caught with Fentanyl and it is still on going; I had to do 30 days probation; I have to have an eval from [facility] and I have to do a drug test in front of the [employer] developer and they will drop the charges - - - - - - - - - - - - - - Problems Problem Type SNOMED Code ICD Code Onset Dates Problem Status W/U Status Risk Notes Problem Diabetes mellitus without complication (740508010) Diabetes (E11.9) Active confirmed Problem Hypertension (27560222) Hypertension (I10) Active confirmed Problem Stimulant dependence (820870845) Methamphetamine use disorder, 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) Active confirmed Encounters Encounter Location Date Provider Diagnosis [address] [place] [address] 07/20/2024 Rose Marie Melendrez Opioid use disorder F11.99 ; Depression F32.9 ; Methamphetamine use disorder, moderate F15.20 ; Anxiety F41.9 and Nicotine dependence, unspecified, uncomplicated F17.200 Assessments Encounter Date Diagnosis (ICD Code) Assessment Notes Treatment Notes Treatment Clinical Notes Section Notes 07/20/2024 Opioid use disorder (ICD-10 - F11.99) Recommend inpatient/residen tial treatment. Referral made. 07/20/2024 Depression (ICD-10 - F32.9) Client reports not needing refills - will restart meds he already has with F/U in two weeks 07/20/2024 Methamphetamine use disorder, moderate (ICD-10 - F15.20) Recommend inpatient/residen tial treatment. Referral made. 07/20/2024 Anxiety (ICD-10 - F41.9) Client reports not needing refills - will restart meds he already has with F/U in two weeks 07/20/2024 Nicotine dependence, unspecified, uncomplicated (ICD-10 - F17.200) 07/20/2024 Other May self-administer medications or be administered own oral medications per [facility] protocols. Provided informed consent with understanding of side effects, adverse effects, risks and benefits as well as alternative treatments as previously discussed and with the above recommended medications & other aspects of the treatment program. Agrees to return sooner if symptoms worsen or suicidal or homicidal ideations occur. Plan Of Treatment Medication Medication Name Sig Start Date Stop Date Notes hydrOXYzine Pamoate 50 MG 1 Capsule Orally 4 times daily FLUoxetine HCl 40 MG 1 capsule Orally Once a day QUEtiapine Fumarate 200 MG 1 tablet at b edtime Orally Once a day for 30 days 07/20/2024 Treatment Notes Assessment Notes Opioid use disorder Recommend inpatient/ residential treatment. Referral made. Depression Client reports not n eeding refills - will restart meds he already has with F/U in two weeks Methamphetamine use disorder, moderate R ecommend inpatient/residential treatment. Referral made. Anxiety Client reports not n eeding refills - will restart meds he already has with F/U in two weeks Other May self-administer medications or be administered own oral medications per [facility] protocols. Provided informed consent with understanding of side effects, adverse effects, risks and benefits as well as alternative treatments as previously discussed and with the above recommended medications & other aspects of the treatment program. Agrees to return sooner if symptoms worsen or suicidal or homicidal ideations occur. Referrals Referral Date Details 07/20/2024 07/20/2024, Substanc e Use - wants residential treatment Next Appt Details Follow Up: 2 Weeks, Reason: Psychiatric Follow-up & Medication Management Progress Notes * Noah DEL ANGEL:1970 (53 yo M)Acc No.[id number]:07/20/2024 Patient: Idris DONOHUE Provider: Alicja Melendrez DNP, LUMP RECEIVER, PMP- :1970 A ge:53 Y S ex:Male Date:07/20/2024 Address:[address] [place], [place] [id number] Check In:01:56 PM HEEL SANDER RUBBER Subjective: * Chief Complaints: * Roshan mary from [facility], last seen 11/26/23 * ROS: P sych ROS: Constitutional A ll systems negative unless indicated otherwise., No recent illness reported. C ardiovascular H [place]. M usculoskeletal C hronic pain, Hx of back and neck fusion surgeries. E ndocrine I nsulin-dependent diabetes. P sych D enies SI/HI/AH/VH,Reports depression/anxiety,Reports anger/irritability,Reports sleep disturbances. * Medical History: * Surgical History: * Hospitalization/Major Diagno stic Procedure: * Social History: P rimary Social History: L iving Arrangement L iving Arrangement: I ndependent Living Lives alone I s this a supportive environment? N o Alcohol Use A lcohol Use Frequency: Never .. Illicit Substance Usage I llicit Substance Usage: Y es S ubstance Used: P rescription Drugs Last use last , Fentanyl and Meth I nterested in quitting: Y es Employment Status E mployment Status: O n Disability Tobacco Use - do not use T obacco Use: S froylan Reviewed with Patient T obacco Use Status Reviewed on: 09/19/2023 T obacco Use: T obacco Control (Standard) T obacco use: C urrent smoker W hen did you start smoking? 1 09/21/1986 H ow often do you smoke cigarettes? E very day H ow many cigarettes a day do you smoke? 1 -20 A dditional Findings: Tobacco user M oderate cigarette smoker (10-19 cigs/day) - - - - - - - [...] ago due to fentanyl use. Rehab at [place] [facility] in past couple of years - - [...] - - - - SOCIAL HISTORY location- [place] Current [place] location- [place] Who lives at home? Lives with sister Siblings? Children? Siblings: 2 sisters and 1 brother children: 1 20-year-old son Relationships? 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 [employer] Occupation/Job history- Currently on disability Hobbies/Interests- Fishing, collect anti[employer]ther[employer], baseball memorabilia, construction Social Activities: Gardening, takes drives, take walks, work on motorcycle Spiritual Affiliation: I do believe that there is someone out there but I feel like we are living in hell Probation/Legal trouble/?: 3.5 years ago I got caught with Fentanyl and it is still on going; I had to do 30 days probation; I have to have an eval from [facility] and I have to do a drug test in front of the [employer] developer and they will drop the charges - - - - - - - - - - - - - -. * Medications: T akingGabapentin 100 MG Capsule 1 capsule Orally three times a day for pain Lantus SoloStar 100 UNIT/ML Solution Pen-injector as directed Subcutaneous Meloxicam 15 MG Tablet 1 tablet Orally Once a day Aspirin 81 81 MG Tablet Delayed Release 1 tablet Orally Once a day Accu-Chek Active Care Kit Omeprazole 20 MG Capsule Delayed Release 1 capsule 30 minutes before morning meal Orally twice a day Basaglar KwikPen 100 UNIT/ML Solution Pen-injector 14-16 Units Subcutaneous at night HumaLOG KwikPen 100 UNIT/ML Solution per sliding scale Subcutaneous three times daily Taking Gabapentin 100 MG Capsule 1 capsule Orally three times a day for pain Taking Lantus SoloStar 100 UNIT/ML Solution Pen-injector as directed Subcutaneous Taking Meloxicam 15 MG Tablet 1 tablet Orally Once a day Taking Aspirin 81 81 MG Tablet Delayed Release 1 tablet Orally Once a day Taking Accu-Chek Active Care Kit Taking Omeprazole 20 MG Capsule Delayed Release 1 capsule 30 minutes before morning meal Orally twice a day Taking Basaglar KwikPen 100 UNIT/ML Solution Pen-injector 14-16 Units Subcutaneous at night Taking HumaLOG KwikPen 100 UNIT/ML Solution per sliding scale Subcutaneous three times daily Not-TakingtiZANidine HCl 4 MG Tablet 1 tablet at bedtime as needed Orally Once a day Lisinopril 40 MG Tablet 1 tablet Orally Once a day SEROquel 200 MG Tablet 1 tablet at bedtime Orally Once a day hydrOXYzine Pamoate 50 MG Capsule 1 Capsule Orally 4 times daily FLUoxetine HCl 40 MG Capsule 1 capsule Orally Once a day Not-Taking tiZANidine HCl 4 MG Tablet 1 tablet at bedtime as needed Orally Once a day Not-Taking Lisinopril 40 MG Tablet 1 tablet Orally Once a day Not-Taking SEROquel 200 MG Tablet 1 tablet at bedtime Orally Once a day Not-Taking hydrOXYzine Pamoate 50 MG Capsule 1 Capsule Orally 4 times daily Not-Taking FLUoxetine HCl 40 MG Capsule 1 capsule Orally Once a day DiscontinuedNarcan 4 MG/0.1ML Liquid as directed Nasally Buprenorphine HCl-Naloxone HCl 8-2 MG Film 1 film under the tongue and allow to dissolve Sublingual three times a day Tylenol Allergy Sinus 500-2-30 MG Tablet 1 tablet as needed Orally every 6 hrs Melatonin 1 MG Tablet 1 capsule at bedtime as needed Orally at night Gabapentin 300 MG Capsule 1 capsule Orally Four Times daily busPIRone HCl 30 MG Tablet 1 tablet Orally Twice a day Benadryl 25 MG Tablet 2 tablet Orally four times a day DULoxetine HCl 60 MG Capsule Delayed Release Particles 1 capsule Orally once daily Acetaminophen 500 MG Tablet 2 tablets as needed for pain (max of 6/day) Orally every 6 hours Influenza Vac Split Quad 0.5 ML Suspension Prefilled Syringe as directed Intramuscular once Stimulant Laxative 5 MG Tablet Delayed Release 1 tablet as needed Orally Once a day Multi-betic Diabetes - Tablet 1 tablet Orally once daily Medication List reviewed and reconciled with the patientDiscontinued Narcan 4 MG/0.1ML Liquid as directed Nasally Discontinued Buprenorphine HCl-Naloxone HCl 8-2 MG Film 1 film under the tongue and allow to dissolve Sublingual three times a day Discontinued Tylenol Allergy Sinus 500-2-30 MG Tablet 1 tablet as needed Orally every 6 hrs Discontinued Melatonin 1 MG Tablet 1 capsule at bedtime as needed Orally at night Discontinued Gabapentin 300 MG Capsule 1 capsule Orally Four Times daily Discontinued busPIRone HCl 30 MG Tablet 1 tablet Orally Twice a day Discontinued Benadryl 25 MG Tablet 2 tablet Orally four times a day Discontinued DULoxetine HCl 60 MG Capsule Delayed Release Particles 1 capsule Orally once daily Discontinued Acetaminophen 500 MG Tablet 2 tablets as needed for pain (max of 6/day) Orally every 6 hours Discontinued Influenza Vac Split Quad 0.5 ML Suspension Prefilled Syringe as directed Intramuscular once Discontinued Stimulant Laxative 5 MG Tablet Delayed Release 1 tablet as needed Orally Once a day Discontinued Multi-betic Diabetes - Tablet 1 tablet Orally once daily Medication List reviewed and reconciled with the patient * Allergies: N .K.D.A.no[Allergies Verified] Objective: * Vitals: * Examination: P sychiatry: APPEARANCE: u nable to assess - telephone appointment. ATTENTION: g ood. ORIENTATION: p erson, place and time. ATTITUDE: c ooperative. AFFECT: u nable to assess - telephone appointment, verbally full. MOOD: d ysthymic, depressed, anxious, irritable. SPEECH: c lear, normal/R/V/R. PSYCHOMOTOR ACTIVITY: u nable to assess - telephone appointment. ABNORMAL BODY MOVEMENTS: u nable to assess - telephone appointment. CURRENT HOMICIDALITY: d enies. CURRENT SUICIDALITY: d enies. THOUGHT PROCESS: l inear, goal-directed. THOUGHT CONTENT: u nremarkable. PERCEPTUAL DISORDERS: n o perceptual disorder noted. INSIGHT: p oor. JUDGEMENT: p oor. INTELLIGENCE (estimate): a verage. M ental Status Exam is limited due to telehealth visit . Assessment: * Assessment: 1. O pioid use disorder - F11.99 2 . M ethamphetamine use disorder, moderate - F15.20 3 . D epression - F32.9 4 . A nxiety - F41.9 5 . N icotine dependence, unspecified, uncomplicated - F17.200 Plan: * Treatment: 2. M ethamphetamine use disorder, moderate Notes: Recommend inpatient/residential treatment. Referral made. Referral To:Behavioral Health Reason:Substance Use - wants residential treatment 3. D epression Continue FLUoxetine HCl Capsule, 40 MG, 1 capsule, Orally, Once a day; C ontinue QUEtiapine Fumarate Tablet, 200 MG, 1 tablet at bedtime, Orally, Once a day, 30 days, 30 Tablet. Notes: Client reports not needing refills - will restart meds he already has with F/U in two weeks? 4. A nxiety Continue hydrOXYzine Pamoate Capsule, 50 MG, 1 Capsule, Orally, 4 times daily. Notes: Client reports not needing refills - will restart meds he already has with F/U in two weeks? 5. O thers Notes: May self-administer medications or be administered own oral medications per [facility] protocols. Provided informed consent with understanding of side effects, adverse effects, risks and benefits as well as alternative treatments as previously discussed and with the above recommended medications & other aspects of the treatment program. Agrees to return sooner if symptoms worsen or suicidal or homicidal ideations occur. * Procedure Codes: G 9902 Pt scrn tbco and id as [id number] Pt recv tbco cess interv * Follow Up: 2 Weeks (Reason: Psychiatric Follow-up & Medication Management) * * SANDER RUBBER Sign off status: Completed true * Provider: Alicja Melendrez, SHARONA, LUMP RECEIVER, PMHNP- Date: 09/19/2023 Generated for Printing/Faxing/eTransmitting on: 0 11/19/2024 01:27 PM HEEL SANDER RUBBER History and Physical Notes * Examination Category Sub-Category Detail Notes Category Not es Psychiatry APPEARANCE: unable to assess - telephone appointment Mental Status Exam is limited due to telehealth visit ATTITUDE: cooperative PSYCHOMOTOR ACTIVITY: unable to assess - telephone appointment ABNORMAL BODY MOVEMENTS: unable to asses s - telephone appointment ATTENTION: good ORIENTATION: person, place and ti me AFFECT: unable to assess - t elephone appointment, verbally full MOOD: dysthymic, depressed , anxious, irritable SPEECH: clear, normal/R/V/R INSIGHT: poor JUDGEMENT: poor THOUGHT PROCESS: linear, goal-directe d THOUGHT CONTENT: unremarkable PERCEPTUAL DISORDERS: no perceptual diso rder noted CURRENT SUICIDALITY: denies CURRENT HOMICIDALITY: denies INTELLIGENCE (estimate): average Consultation Request Notes Referral Date Referring Provider Referred Provider Not es 07/20/2024 Rose Marie Melendrez , Substance Us e - wants residential treatment
--- OUTSIDE RECORDS SUMMARY | 2024-11-19 13:27 | XMS_ITS | CONTINUITY OF CARE DOCUMENT ---
Author Name annalisashelialaurie Address Unknown Organization [facility] Address [address] [place] [address] Phone [phone] Care Team Providers Care Cement Patcher Name Role Phone Chidi RIOS, Patrizia Unavailable CECILIA SINGER MD Unavailable CECILIA SINGER MD Unavailable [phone] INSURANCE PROVIDERS Payer name Policy type / Coverage type [place] red constitution party ID HUMANA PPO HMO [id number] MEDICARE SECONDARY [place] Medicare [id number]
--- OUTSIDE RECORDS SUMMARY | 2024-11-19 13:27 | XMS_ITS ---
Author Organization [facility] Address [address] [place] [address] Care Team Providers Care Tobacco Dipper Name Role Phone Rose Marie Melendrez Primary Care Provider REASON FOR VISIT Appointment Social History Sex Assigned At : Social History Observation Description Sex Assigned At Male Encounters Encounter Location Date Provider Diagnosis [address] [address] 07/23/2024 Rose Marie Melendrez Plan Of Treatment No Information Progress Notes * [facility]wn[facility] HERNANDEZOB:1970 (53 yo M)Acc No.[id number]:07/23/2024 Patient: Idris DONOHUE :1970 A ge:53 Y S ex:Male Address:[address] [place] [address], [address] * true * Date: Generated for Esaui jose/Еленаg/eTransmitting on: 0 11/19/2024 01:27 PM HANDICAPPED TEACHER
--- OUTSIDE RECORDS SUMMARY | 2024-11-19 13:29 | XMS_ITS | Continuity of Care Document ---
Author Organization [facility] Address [address] [place] [address] Phone Care Team Providers Care Oncology Specialist Name Role Phone Dax Jin MD Unavailable Unavailable Procedures Procedure Date Scheduling Rescheduling Medical Testimon y Medical Testimony Deposition Advance Directives Directive Yes / No Effective Date File Name No Information Encounters Encounter Description Practice Location Reason(s) For Visit Diagnoses Date Provider Providers Copied on Encounter [facility], [address], [id number], [place] tel:[phone] [facility] No Information Annabel Verduzco. [address] [place] [address], [place] [address], [place], [place], [id number] , . tel: [phone] Family History Family Member Type Diagnosis Age At Onset No Information Payers Payer name Insurance type Covered constitution party ID Authoriza tion(s) No Information Social History Type Description Quantity Date Captured Comments Sex Male Smoking Status No Information Chief Complaint And Reason For Visit No Information Reason For Referral Reason For Referral No Information History Of Present Illness Encounter Date Complaint History Of Prese nt Illness No Information Functional Status Date Functional Assessmen t No Information Instructions Date Instruction Additional Infor mation No Information Assessments Type Assessment Date No Information Patient Care Teams Name Effective Dates (start - stop) Status Members No Information
--- OUTSIDE RECORDS SUMMARY | 2024-11-19 13:29 | XMS_ITS ---
Author Organization [facility] Address [address] [place] [address] Care Team Providers Care Band Reamer Machine Operator Name Role Phone Rose Marie Melendrez Primary Care Provider REASON FOR VISIT 2 Week Psych Med Check Social History Sex Assigned At : Social History Observation Description Sex Assigned At Male Encounters Encounter Location Date Provider Diagnosis [address] [address] 08/04/2024 Rose Marie Melendrez Plan Of Treatment No Information Progress Notes * Shawna DEL ANGELOB:1970 (53 yo M)Acc No.[id number]:08/04/2024 UNLOCKED PROGRESS NOTE Patient: Idris DONOHUE Provider: Alicja Melendrez DNP, APRN, PMHNP-BC :1970 A ge:53 Y S ex:Male Date:08/04/2024 Address:[address] [place], [place] [id number] Subjective: * Chief Complaints: * 1 . 2 Week Psych Med Check. * Medical History: Objective: * Vitals: Assessment: Plan: * Treatment: * * Electronic signature of Ana Leiva [id number] on 11/19/2024 at 01:28 PM SURGICAL ELASTIC KNITTER HAND FRAME Sign off status: Pending * Provider: Alicja Melendrez DNP, APRN, PMHNP-BC Date: 10/04/2023 Generated for Printing/Faxing/eTransmitting on: 0 11/19/2024 01:28 PM SURGICAL ELASTIC KNITTER HAND FRAME
== END 2024-11-19 13:05 | disposition home or self-care (01) ==
PROVIDERS: PCP Family Medicine; Visit Provider Nurse Practitioner Family
DX: M89.8X8 Other specified disorders of bone, other site (principal); M54.40 Lumbago with sciatica, unspecified side; G89.29 Other chronic pain
CPT/HCPCS: 72110

== ENCOUNTER 2025-07-13 12:43 | Outpatient (CLI) | payer MEDICARE, SELFPAY ==
--- OUTSIDE RECORDS SUMMARY | 2024-08-04 04:00 | XMS_ITS ---
Author Organization Formerly [facility], [facility] Address [address] [place] [address] Care Team Providers Care Canopy Stringer Name Role Phone Rose Marie Melendrez Primary Care Provider REASON FOR VISIT 2 Week Psych Med Check Social History Sex Assigned At : Social History Observation Description Sex Assigned At Male Encounters Encounter Location Date Provider Diagnosis [address] [address] 08/04/2024 Rose Marie Melendrez Plan Of Treatment No Information Progress Notes * Shawna DEL ANGELOB:1970 (54 yo M)Acc No.[id number]:08/04/2024 UNLOCKED PROGRESS NOTE Patient: Idris DONOHUE Provider: Alicja Melendrez DNP, APRN, PMHNP-BC :1970 A ge:53 Y S ex:Male Date:08/04/2024 Address:[address] [place], [place] [id number] Subjective: * Chief Complaints: * 1 . 2 Week Psych Med Check. * Medical History: Objective: * Vitals: Assessment: Plan: * Treatment: * * Electronic signature of Ana Leiva [phone] on 07/13/2025 at 01:56 PM CDT Sign off status: Pending * Provider: Alicja Melendrez DNP, APRN, PMHNP-BC Date: 10/04/2023 Generated for Printing/Faxing/eTransmitting on: 1 01:56 PM CDT
--- NOTE | 2025-07-13 13:00 | NEURO_ITS ---
Impression: # Insulin dependent juvenile diabetic complains of increasing numbness. ? 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 ? # Needle/ EMG exam revealed neurogenic changes. Nerve Conduction Studies ?Stim Site NR Peak (ms) P-T Amp (?V) Site1 Site2 Delta-P (ms) Dist (cm) Fortino (m/s) Left Median Anti Sensory (2-3nd Digit)??? NO RESPONSE Wrist NR Wrist 2-3nd Digit 14.0 Wrist NR Wrist 2-3nd Digit 14.0 Right Median Anti Sensory (2-3nd Digit) Wrist ? 5.9 15.4 Wrist 2-3nd Digit 5.9 14.0 24 Wrist ? 6.0 17.6 Wrist 2-3nd Digit 5.9 14.0 24 Left Radial Anti Sensory (Base 1st Digit) Wrist ? 2.4 16.0 Wrist Base 1st Digit 2.4 0.0 Right Radial Anti Sensory (Base 1st Digit) Wrist ? 2.3 15.6 Wrist Base 1st Digit 2.3 0.0 Left Ulnar Anti Sensory (5th Digit) Wrist ? 5.7 7.5 Wrist 5th Digit 5.7 14.0 25 Right Ulnar Anti Sensory (5th Digit) Wrist ? 5.8 6.5 Wrist 5th Digit 5.8 14.0 24 ?Stim Site NR Onset (ms) O-P Amp (mV) Site1 Site2 Delta-0 (ms) Dist (cm) Fortino (m/s) Left Median Motor (Abd Poll Brev) Wrist ? 8.9 3.1 Elbow Wrist 5.0 26.0 52 Elbow ? 13.9 3.8 Right Median Motor (Abd Poll Brev) Wrist ? 5.8 3.7 Elbow Wrist 5.9 30.0 51 Elbow ? 11.7 5.1 Left Ulnar Motor (Abd Dig Minimi) Wrist ? 3.3 4.3 A Elbow Wrist 6.4 32.0 50 A Elbow ? 9.7 4.1 B Elbow Wrist 4.7 24.0 51 B Elbow ? 8.0 2.6 Right Ulnar Motor (Abd Dig Minimi) Wrist ? 3.5 4.7 A Elbow Wrist 6.4 32.0 50 A Elbow ? 9.9 4.0 B Elbow Wrist 4.8 24.0 50 B Elbow ? 8.3 4.4 F Wave Studies ?NR F-Lat (ms) L-R F-Lat (ms) Left Median (Mrkrs) (Abd Poll Brev) ? 31.34 0.35 Right Median (Mrkrs) (Abd Poll Brev) ? 31.00 0.35 Left Ulnar (Mrkrs) (Abd Dig Min) ? 30.68 0.16 Right Ulnar (Mrkrs) (Abd Dig Min) ? 30.84 0.16 Electromyography ?Side Muscle Nerve Root Ins Act Fibs Amp Dur Recrt Comment Right 1stDorInt Ulnar C8-T1 Nml Nml Decr >12ms +1 Left 1stDorInt Ulnar C8-T1 Nml Nml Decr >12ms +1 Right ABD Dig Min Ulnar C8-T1 Nml Nml Decr >12ms +1 Left ABD Dig Min Ulnar C8-T1 Nml Nml Decr >12ms +1 Left Abd Poll Brev Median C8-T1 Nml Nml Decr >12ms +1 Right Abd Poll Brev Median C8-T1 Nml Nml Decr >12ms +1 Right Abd Poll Long Radial (Post Int) C7-8 Nml Nml Nml Nml Nml Left Abd Poll Long Radial (Post Int) C7-8 Nml Nml Nml Nml Nml Left BrachioRad Radial C5-6 Nml Nml Decr >12ms +1 Right BrachioRad Radial C5-6 Nml Nml Decr >12ms +1 Right Ext Digitorum Radial (Post Int) C7-8 Nml Nml Nml Nml Nml Left Ext Digitorum Radial (Post Int) C7-8 Nml Nml Nml Nml Nml Left Ext Indicis Radial (Post Int) C7-8 Nml Nml Nml Nml Nml Right Ext Indicis Radial (Post Int) C7-8 Nml Nml Nml Nml Nml Left FlexPolLong Median (Ant Int) C7-8 Nml Nml Nml Nml Nml Right FlexPolLong Median (Ant Int) C7-8 Nml Nml Nml Nml Nml Right PronatorTeres Median C6-7 Nml Nml Nml Nml Nml Left PronatorTeres Median C6-7 Nml Nml Nml Nml Nml
--- OUTSIDE RECORDS SUMMARY | 2025-07-13 13:56 | XMS_ITS | Encounter Summary ---
Author Organization [facility] Healthcare Address [address] [place] [address] Care Team Providers Care [facility] Marker Name Role Phone Parmjit Mcdermott MD Primary Care Provider [phone] Aldo Venegas Unavailable Unavailable Georgi Rios Unavailable Unavailable Noe Trevino MD Unavailable [phone] Campbell Olea MD Unavailable [phone] Encounter Details Date Type Department Care Team (Late st Contact Info) Description 05/08/2021 [facility] Outreach [facility] Warm Hand Off Program [address] [place], [place] [phone] Georgi Rios Social History Tobacco Use Types Packs/Day Years Used Date Smoking Tobacco: Every Day Cigarettes 1 39.5 Started: 01/24/1986 Smokeless Tobacco: Never Alcohol Use [...] on file Legal Sex Male 1:37 AM [employer] Gender Identity Not on file Sexual Orientation Not on file documented as of this encounter Plan of Treatment Not on file documented as of this encounter Visit Diagnoses Not on filedocumented in this encounter Care Teams Cone Marker Relationship Specialty Start Date End Date Parmjit Mcdermott MD [address] [id number] PCP - General 10/24/10 Aldo Venegas Communication Consultant Addiction Medicine 04/23/21 03/10/23 Blanca Jesseeamber Communication Consultant Addiction Medicine 05/08/21 03/10/23 Noe Trevino MD [address] [place] [id number] Consulting Physician Infectious Diseases 01/17/25 Campbell Olea MD [address] [place] [id number] Consulting Physician Urology 01/17/25 documented as of this encounter
--- OUTSIDE RECORDS SUMMARY | 2025-07-13 13:56 | XMS_ITS | Clinical Summary ---
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 REPORT 07/06/2025 12:41 PM - Electronically signed by Shyanne Silver M.D. SN: Report ID: [id number] Reading Location: [place] [address] Albert Zamarripa CMM PROGRAMMER IMG CT PROCEDURES Final Resu lt * eGFR (01/18/2025 5:29 AM CDT) eGFR >90 >=60 mL/min/1. 73 m2 [...] interpretive data was last reviewed 2021. Blood 01/18/2025 5:29 AM CDT 01/18/2025 6:02 AM CDT Miranda Tobin NP LAB BLOOD ORDERABLE S Final Result Performing Organization Address [facility] Co de Phone Number [facility] ([place]) [address] [place] [address] * (ABNORMAL) Hemoglobin A1c (12/15/2024 12:32 AM CDT) Hgb A1C 11.9(H) 4.0 - 5.6 % Estimated Average Glucose 295 mg/dL [facility] ([place]) Comment: The ADA recommends reporting an estimated Average Glucose (eAG) with all Hemoglobin A1c results using the equation derived from a study of 507 normal and diabetic adults. Minority populations were underrepresented and children were not included. (Diabetes Care 31:2141-7316, 2008). The eAG is not equivalent to a fasting glucose. Blood 12/15/2024 12:3 2 AM CDT 12/15/2024 8:11 AM CDT Yessenia Bruce MD LAB BLOOD ORDERABLES Final Res ult Performing Organization Address [facility] Co de Phone Number [facility] ([place]) [address] [place] [address] * Hepatitis panel, acute (03/10/2023 2:21 PM CDT) Hep A IgM Nonreactive Nonreactive [facility]) Comment: Interpretive Data: If Hep A IgM Ab is reported as Equivocal, a new sample should be drawn in two weeks for testing. Current interpretive data was last revised on 19. Testing performed by: [facility], [address] [place] [address]., [id number] Hep B core IgM Nonreactive Nonreactive Amy [facility] ([place]) Comment: Interpretive Data If HepB Core IgM Ab is reported as Equivocal, a new sample should be drawn in two weeks for testing. Current interpretive data was last revised on 19. Testing performed by: [facility], [address] [place] [address]., [id number] Hep C Ab Nonreactive Nonreactive [facility] [...] last revised on 2019. Testing performed by: [facility], [address] [place] [address]., [id number] HepBsAg Nonreactive Nonreactive [facility] ([place]) Comment:Testing performed by : [facility], [address] [place] [address]., [id number] Blood 03/10/2023 2:21 PM CDT 03/11/2023 9:47 AM CDT Jeannie Nguyen MD LAB MICROBIOLOGY - GENERAL ORDER ALLEY Final Result [facility] ([place]) 1 [facility] [place] [address] * Lipid panel (03/10/2023 10:56 AM CDT) [...] on 2018. Chol/HDL ratio 2 [facility] ([place]) Blood 03/10/2023 10:5 6 AM CDT 03/10/2023 2:02 PM CDT Jeannie Nguyen MD LAB BLOOD ORDERABLES Final Resul t Performing Organization Address City/[facility]/ZIP Co de Phone Number [facility] ([place]) [address] [place] [address] [place] [address] * TSH reflex to free T4 (02/12/2023 4:25 PM CDT) TSH 0.74 0.30 - 4.20 mcIUnit/mL [facility]) Blood 02/12/2023 4:25 PM CDT 02/12/2023 4:58 PM CDT Shivam Arreguin MD LAB BLOOD ORDERABLES Final Resu lt Performing Organization Address [facility] Co de Phone Number [facility] ([place]) [address] [place] [address] [place] [address] * Albumin Creatinine Ratio, Urine (11/20/2022 5:08 PM 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) Albumin Ur <12.0 mg/L [facility] Comment: Interpretive Data No reference range established. Current interpretive data was last revised 2019. Creatinine Ur 122.6 mg/dL [facility] Comment: Interpretive Data No reference range established. Current interpretive data was last revised 2019. Albumin Creatinine Ratio, Ur <10 1 - 29 mg/g [facility] Urine 11/20/2022 5:08 PM 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 11/20/2022 5:50 PM 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 Is-Da Apoorva Acevedo MD LAB URINE ORDERABLES Fin al Result [facility] Department [place] [address] from Last 3 Months or Most Recently Relevant to Health Maintenance Insurance [employer] MEDICARE PPO [employer] CHOICE MEDICARE PPO MEDICARE [facility] TRADITIONAL HUMANA CHOICE MEDICARE PPO Advance Directives For more information, please contact: [phone] * Full Code (Latest Code Status on File) Date Activated Date Inactivated Comments 12/15/2024 5:47 AM 01/18/2025 11:57 AM * Full Code Date Activated Date Inactivated Comments 08/02/2023 6:12 PM 08/03/2023 7:36 PM * Full Code Date Activated Date Inactivated Comments 08/02/2023 5:17 PM 08/02/2023 6:12 PM * Full Code Date Activated Date Inactivated Comments 03/10/2023 1:57 PM 03/14/2023 2:59 PM * Full Code Date Activated Date Inactivated Comments 02/12/2023 12:33 PM 02/16/2023 9:51 PM Care Teams Paper Rewinder Relationship Specialty Start Date End Date Parmjit Mcdermott MD [address] [address] PCP - General 10/24/10 Noe Trevino MD [address] [place] [address] Consulting Physician Infectious Diseases 01/17/25 Campbell Olea MD [address] [place] [address] Consulting Physician Urology 01/17/25
--- OUTSIDE RECORDS SUMMARY | 2025-07-13 13:56 | XMS_ITS | Patient Health Record ---
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) Referral Organization [facility] Referring Provider First Name Rose Marie Referring Provider Last Name Parvin Referring Provider Speciality Psychiatry Referred Provider Specialty [facility] Clinical Notes Marium Diaz 07/26/2024 [...] 1 tablet at bedtime Orally Once a day; Duration: 30 days 07/20/2024 Active Basaglar KwikPen 100 UNIT/ML 14-16 Units Subcutaneous at night Active Omeprazole 20 MG 1 capsule 30 minutes before morning meal Orally twice a day Active FLUoxetine HCl 40 MG 1 capsule Orally On ce a day Active Lisinopril 40 MG 1 tablet Orally Once a day; Duration: 30 days 07/24/2021 Not-Paula g Immunizations Vaccine Route Administration Date Status Comme nts COVID-19 Moderna 2nd IM Intramuscular 07/30/2021 Administered Patient tolerat ed well. Patient monitored for adverse reactions. No reactions noted. Given by Student nurse Torie Soto FLU VAC NO PRSV 4VAL 6 mo+ IM Intramuscular 07/30/2021 Administered Patient tolerat ed well. Given by Torie Palomino Student Nurse Social History Tobacco Use: Social History Observation Description Date Details (start date - stop date) Current Smoker 07/22/1987 - NA Sex Assigned At : Social History Observation Description Sex Assigned At Male PRAPARE Question Answer Notes Date Completed/Updated: 11/25/2023 What is your current housing situation? I do not have housing (staying with others, in a hotel, in a longterm, living outside on the street, on a beach, or in a park) living with mother Are you worried about losing your housing? No What is the highest level of school that you have finished? More than high school What is your current work situation? 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 Stress is when someone feels tense, nervous, anxious, or can\t sleep at night because their mind is troubled Very much In the past year have you sp ent more than 2 nights in a row in a group home, chcf, nursing home center, or juvenile correctional facility? No Do you feel physically and emotionally safe where you currently live? Yes In the past year, have you b een afraid of your partner or ex-partner? No Are you a refugee? No What country are you from? [place] PRAPARE Score: 1 Tobacco Control (Standard) [...] ago due to fentanyl use. Rehab at [facility] in past couple of years - - [...] - - - - SOCIAL HISTORY location- [place], [place] Current home location- [place] Who lives at home? Lives with sister Siblings? Children? Siblings: 2 sisters and 1 brother children: 1 20-year-old son Relationships? 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 [employer] Occupation/Job history- Currently on disability Hobbies/Interests- Fishing, collect [employer], baseball memorabilia, construction Social Activities: Gardening, takes drives, take walks, work on motorcycle Spiritual Affiliation: I do believe that there is someone out there but I feel like we are living in hell Probation/Legal trouble/?: 3.5 years ago I got caught with Fentanyl and it is still on going; I had to do 30 days probation; I have to have an eval from [facility] and I have to do a drug test in front of the gas appliance servicer and they will drop the charges - - - - - - - - - - - - - - Problems Problem Type SNOMED Code ICD Code Onset Dates Problem Status W/U Status Risk Notes Problem Polyneuropathy due to diabetes mellitus type I (532705664) Type 1 diabetes mellitus with diabetic polyneuropathy (E10.42) Active confirmed Problem Tobacco user (813503915) Nicotine dependence, unspecified, uncomplicated (F17.200) Active confirmed Problem Chronic pain (81408163) Other chronic pain (G89.29) Active confirmed Problem Hypertension (53143449) Hypertension (I10) Active confirmed Problem Depression (468704886) Depression (F32.9) Active confirmed Problem Mood disorder (33517729) Mood disorder (F39) Active confirmed AT LEAST PARTIALLY SUBSTANCE INDUCED Problem Anxiety (63358850) Anxiety (F41.9) Active confirmed Problem Type II diabetes mellitus without complication (712478682) Diabetes (E11.9) Active confirmed Problem Umbilical hernia (813240197) Umbilical hernia without obstruction and without gangrene (K42.9) Active confirmed Problem Tobacco use (830059240) Tobacco use disorder (F17.200) Active confirmed Problem Opioid use disorder (5065313789) Opioid use disorder (F11.99) Active confirmed Problem Stimulant dependence (537830833) Methamphetamine use disorder, 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) Active confirmed Problem Low back pain (118375999) Low back pain, unspecified (M54.50) Active confirmed Encounters Encounter Location Date Provider Diagnosis [address] [place] [address] 07/20/2024 Rose Marie Melendrez Opioid use disorder F11.99 ; Depression F32.9 ; Methamphetamine use disorder, moderate F15.20 ; Anxiety F41.9 and Nicotine dependence, unspecified, uncomplicated F17.[address] [place] [address] 07/23/2024 Rose Marie Melendrez Assessments Encounter Date Diagnosis (ICD Code) Assessment Notes Treatment Notes Treatment Clinical Notes Section Notes 07/20/2024 Opioid use disorder (ICD-10 - F11.99) Recommend inpatient/residen tial treatment. Referral made. 07/20/2024 Methamphetamine use disorder, moderate (ICD-10 - F15.20) Recommend inpatient/residen tial treatment. Referral made. 07/20/2024 Depression (ICD-10 - F32.9) Client reports not needing refills - will restart meds he already has with F/U in two weeks 07/20/2024 Anxiety (ICD-10 - F41.9) Client reports not needing refills - will restart meds he already has with F/U in two weeks 07/20/2024 Nicotine dependence, unspecified, uncomplicated (ICD-10 - F17.200) 07/20/2024 Other May self-administer medications or be administered own oral medications per [facility] protocols. Provided informed consent with understanding of [...] End Date [employer] MEDICARE ADV [address] [address] [place] [address] [id number] Idris Del Angel Self - patient is [...]
--- OUTSIDE RECORDS SUMMARY | 2025-07-13 13:56 | XMS_ITS | Patient Health Record ---
Author Organization [facility] [email or web address] Address [address] [place] [address] Care Team Providers Care Alkylation Operator Name Role Phone Selma Morrison Unavailable [phone] Reason For Referral No Information Medications Medication SIG (Take, Route, Frequency, Duration) Notes Start Date End Date Status Omeprazole 20 MG Capsule Delayed Release Oral Active QUEtiapine Fumarate 50 MG Tablet Oral Active TECHLITE PEN NEEDLE 32 gauge x NEEDLE, DISPOSABLE MISCELLANEOUS *Reorder from [employer] for eRx and Interaction Alerts* Active Amitriptyline HCl 25 MG Tablet Oral Active Mirtazapine 15 MG Tablet Oral Active QUEtiapine Fumarate 200 MG Tablet Oral Active hydrOXYzine Pamoate 25 MG Capsule Oral Active QUEtiapine Fumarate 100 MG Tablet Oral Active Mirtazapine 30 MG Tablet Oral Active Testosterone Cypionate 200 MG/ML Solution Intramuscular Active Insulin Lispro (1 Unit Dial) 100 UNIT/ML Solution Pen-injector Subcutaneous Active Basaglar KwikPen 100 UNIT/ML Solution Pen-injector Subcutaneous Active Amitriptyline HCl 10 MG Tablet Oral Active Cephalexin 500 MG Capsule Oral Active hydrOXYzine Pamoate 50 MG Capsule Oral Active Vitamin C 500 mg Tablet Oral Active HumaLOG KwikPen 100 UNIT/ML Solution Pen-injector Subcutaneous Active NOVOFINE 32 32 gauge x 1/4 NEEDLE, DISPOSABLE MISCELLANEOUS *Reorder from [employer] for eRx and Interaction Alerts* Active Lisinopril 40 MG Tablet Oral Active SEMGLEE (INSULIN GLARGINE-YFGN) PEN 100 UNIT/ML (3 ML) SUBCUTANEOUS *Reorder from [employer] for eRx and Interaction Alerts* Active BD RISA 2ND GEN PEN NEEDLE 32 GAUGE X 5 *Reorder from [facility] for eRx and Interaction Alerts* Active ULTICARE 32 gauge x 532 NEEDLE, DISPOSABLE MISCELLANEOUS *Reorder from [facility] for eRx and Interaction Alerts* Active FREESTYLE STEVE 2 SENSOR KIT *Reorder from [facility] for eRx and Interaction Alerts* Active OneTouch Verio Strip In Vitro Active FLUoxetine HCl 20 MG Capsule Oral Active Buprenorphine HCl-Naloxone HCl 8-2 MG Film Sublingual Active Plan Of Treatment No Information Insurance Providers Payer Name Payer Address Payer Phone Subscriber Number Group Number Insured Name Patient Relationship to Insured Coverage Start Date Coverage End Date [employer] [address] [place] [address] [id number] TJ HARTMAN Self - patient is the insured Medicare-I l Medicare [address] [place] [address] [id number] TJ HARTMAN Self - patient is the insured
== END 2025-07-13 12:44 | disposition home or self-care (01) ==
LOC: ANHNEURO 12:44
PROVIDERS: PCP Family Medicine; Visit Provider Plastic Surgery
DX: G56.02 Carpal tunnel syndrome, left upper limb (principal); E11.9 Type 2 diabetes mellitus without complications; Z79.4 Long term (current) use of insulin
CPT/HCPCS: 95886; 95911